=== PATIENT | male | born 1940 | race Caucasian/White ===

== ENCOUNTER 2016-09-11 08:09 | Day surgery (SDC) | payer MEDICARE, BC ==
[2016-09-11] MEDS ORDERED: LACTATED RINGERS 1,000 ML IV ONE (09:10)
[2016-09-11] MEDS ORDERED: GLUCAGON 1 MG/ML VIAL IM ONE (10:05)
[2016-09-11] MEDS ORDERED: MIDAZOLAM 2 MG/2 ML VIAL IVP ONE (10:05)
[2016-09-11] MEDS ORDERED: fentaNYL 100 MCG/2 ML VIAL IVP ONE (10:05)
== END 2016-09-11 08:10 | disposition home or self-care (01) ==
PROC: 0DBP8ZZ Excision of Rectum, Via Natural or Artificial Opening Endoscopic (ICD-10-PCS; 2016-09-11)
PROC: 0DBN8ZZ Excision of Sigmoid Colon, Via Natural or Artificial Opening Endoscopic (ICD-10-PCS; 2016-09-11)
PROC: 0DBH8ZZ Excision of Cecum, Via Natural or Artificial Opening Endoscopic (ICD-10-PCS; principal; 2016-09-11 09:15)
DX: Z12.11 Encounter for screening for malignant neoplasm of colon (principal); D12.0 Benign neoplasm of cecum; D12.5 Benign neoplasm of sigmoid colon; K62.1 Rectal polyp; G47.30 Sleep apnea, unspecified; I10 Essential (primary) hypertension; Z87.891 Personal history of nicotine dependence
CPT/HCPCS: 45384; 45385; J7120

== ENCOUNTER 2016-10-26 11:24 | Outpatient (CLI) | payer MEDICARE, BC | END 2016-10-26 11:25 | disposition home or self-care (01) | DX: G47.30 Sleep apnea, unspecified (principal); E11.9 Type 2 diabetes mellitus without complications; I50.9 Heart failure, unspecified; I25.10 Atherosclerotic heart disease of native coronary artery without angina pectoris; I10 Essential (primary) hypertension ==

== ENCOUNTER 2017-05-02 10:05 | Outpatient (CLI) | payer MEDICARE, BC ==
[2017-05-02 18:42] LABS: CALCIUM 8.9 mg/dL (8.5-10.3); CREATININE 1.6 mg/dL (0.6-1.2); POTASSIUM 4.9 mmol/L (3.5-5.0)
[2017-05-02 19:14] LABS: HEMOGLOBIN A1C 0.96 g/dL
== END 2017-05-02 10:06 | disposition home or self-care (01) ==
LOC: LAB.F 10:05
PROVIDERS: ATTEND Family Medicine
DX: I25.10 Atherosclerotic heart disease of native coronary artery without angina pectoris (principal); E11.9 Type 2 diabetes mellitus without complications; I10 Essential (primary) hypertension
CPT/HCPCS: 36415; 80048; 83036

== ENCOUNTER 2017-05-08 14:50 | Outpatient (CLI) | payer MEDICARE, BC ==
--- NOTE | 2017-05-09 12:56 | Ultrasound Report ---
BILATERAL LOWER EXTREMITY ARTERIAL DUPLEX: 05/08/2017 CLINICAL INDICATION: Peripheral vascular disease. TECHNIQUE: Real-time sonographic vascular imaging was performed by the burial vault deliverer and installer through the lower extremities utilizing both color-flow and Doppler spectral analysis. Multiple premium representative static images were saved for review. RIGHT SIDE SITE PSV WAVEFORM STEN VERTICA ARCHITECT 104 biphasic PSFA 103 biphasic MSFA 106 biphasic DSFA 105 biphasic PFA 55 biphasic POP 73 triphasic ELLIOTT 62 biphasic DISH WASHER 100 triphasic PER 58 biphasic DPA 53 biphasic LEFT SIDE SITE PSV WAVEFORM STEN VERTICA ARCHITECT 124 triphasic PSFA 107 triphasic MSFA 88 biphasic DSFA 100 triphasic PFA 101 biphasic POP 80 biphasic ELLIOTT 36 biphasic DISH WASHER 127 biphasic PER 99 biphasic DPA 43 biphasic TECHNIQUE: Real-time scanning was performed. FINDINGS: RIGHT: Waveforms are predominately biphasic. There is no evidence of a focal velocity increase to suggest a hemodynamically significant arterial stenosis. LEFT: Waveforms are predominately biphasic. There is no evidence of a focal velocity increase to suggest a hemodynamically significant stenosis. IMPRESSION: NO EVIDENCE OF A FOCAL HEMODYNAMICALLY SIGNIFICANT STENOSIS IN EITHER LEG. MTDD
== END 2017-05-08 14:51 | disposition home or self-care (01) ==
LOC: DI 14:50
PROVIDERS: ATTEND Family Medicine
DX: I73.9 Peripheral vascular disease, unspecified (principal)
CPT/HCPCS: 93925

== ENCOUNTER 2017-06-09 08:57 | Outpatient (CLI) | payer MEDICARE, BC ==
--- NOTE | 2017-06-09 17:04 | MRI Report ---
EXAM: MRI LUMBAR SPINE WITHOUT CONTRAST EXAM DATE: 06/09/2017 10:04 a.m. CLINICAL HISTORY: Low back pain with bilateral leg weakness. COMPARISON: Radiographs 03/20/2014. TECHNIQUE: Multiplanar, multisequence T1-weighted and fluid-sensitive sequences of the lumbar spine f rom T12 to S1 without contrast. Other: None. FINDINGS: Spinal Cord: The conus terminates at L1. Conus medullaris and lower thoracic cord is unremarkable. Alignment: Normal alignment. No spondylolisthesis. Bone Marrow: Five sbm-ytr-buxyryy lumbar vertebral bodies are assumed. No fracture. A small amount of diskogenic endplate edema at L2-L3. Disk Levels/Facets: Some degree of congenital canal stenosis with short pedicles throughout the lumba r spine and some prominence of posterior epidural fat from L2-L3 through L4-L5. There is disk height loss and dehydration throughout the lower thoracic and lumbar spine. T12-L1: Minimal disk bulge. No stenosis. L1-L2: Minimal disk bulge. No stenosis. L2-L3: Annular disk bulge, small foraminal protrusions and mild degenerative facet arthropathy. Mild central canal stenosis. Mild inferior foraminal narrowing bilaterally. L3-L4: Annular disk bulge with a broad-based large right paracentral and foraminal protrusion and sma ller left foraminal protrusion. Mild facet arthropathy with ligamentum flavum buckling. Severe centra l canal stenosis. Moderate left greater than right foraminal stenosis. L4-L5: Moderate degenerative facet arthropathy with ligamentum flavum buckling. Small broad-based for aminal protrusions. Mild central canal stenosis. Mild bilateral foraminal stenosis. L5-S1: Annular disk bulge and mild degenerative facet arthropathy. No significant stenosis. Musculature: Unremarkable. Other: Left renal atrophy partially visualized. IMPRESSION: 1. L3-L4 severe central canal stenosis and moderate left, greater than right, foraminal stenosis. 2. Mild central canal stenosis at the L2-L3 and L4-L5 levels. Comment: The following findings are so common in adults without low back pain that while we report th eir presence, they must be interpreted with caution and in the context of the clinical situation. (Re gilberto Dai et al, Spine 2001) Prevalence of findings in patients without low back pain: Disk degeneration (any evidence): 92% Disk desiccation/T2 signal loss: 83% Disk height loss: 56% Disk bulge: 64% Disk protrusion: 32% Annular tear/high intensity zone: 38% [facility] Referring Provider Line: [phone] SITE ID: [id number]
== END 2017-06-09 08:58 | disposition home or self-care (01) ==
LOC: DI 08:57
PROVIDERS: ATTEND Family Medicine
DX: M51.26 Other intervertebral disc displacement, lumbar region (principal); M51.36 Other intervertebral disc degeneration, lumbar region; M47.896 Other spondylosis, lumbar region
CPT/HCPCS: 72148

== ENCOUNTER 2017-08-28 07:49 | Emergency (ER) | payer MEDICARE, BC ==
--- NOTE | 2017-08-28 09:00 | ED Physician Documentation ---
PD HPI URI - Stated complaint Stated Complaint: COUGH - Chief complaint Chief Complaint: Resp - History obtained from History obtained from: Patient, Family - History of Present Illness Timing - onset: How many weeks ago (2) Timing duration: Weeks (2) Timing details: Gradual onset, Still present, Waxing and waning Associated symptoms: Nasal congestion, Rhinorrhea, Sore throat, Dry cough, Dyspnea Improves by: Rest, Medication Worsened by: Activity Similar symptoms before: Diagnosis (pneumonia) Recently seen: Not recently seen - Additional information Additional information: 77-year-old male is developed a cough for the past 2 weeks. He had some clearing of the cough and then worsening of his symptoms again. He had a hard time trying to cough up phlegm all night long last night. He does use CPAP. He has had prior sinus infection and pneumonia. Review of Systems Constitutional: denies: Fever Eyes: denies: Decreased vision Ears: denies: Ear pain Nose: reports: Rhinorrhea / runny nose, Congestion Throat: reports: Sore throat Cardiac: reports: Chest pain / pressure. denies: Palpitations Respiratory: reports: Dyspnea, Cough GI: denies: Abdominal Pain, Nausea, Vomiting : denies: Dysuria, Frequency PD PAST MEDICAL HISTORY - Past Medical History Cardiovascular: High cholesterol, Coronary artery disease Respiratory: Sleep apnea, CPAP use Neuro: None Endocrine/Autoimmune: Type 2 diabetes GI: Colon polyps, Chronic constipation : Kidney stones HEENT: None Psych: None Musculoskeletal: None Derm: Other - Past Surgical History Past Surgical History: Yes Cardiovascular: CABG, Other Derm: Skin cancer surgery - Present Medications Home Medications: Ambulatory Orders Medication Instructions Recorded Confirmed Aspirin [Aspir 81] 81 mg PO DAILY 02/25/14 09/11/16 Atorvastatin [Lipitor] 40 mg PO QPM 02/25/14 09/11/16 Insulin NPH Human [NovoLIN N] 100 - 150 unit SQ DAILY 02/25/14 09/11/16 Lisinopril 20 mg PO DAILY #30 tablet 04/27/16 09/11/16 hydroCHLOROthiazide [Hydrodiuril] 25 mg PO DAILY #30 tablet 04/27/16 09/11/16 Canagliflozin [Invokana] 300 mg PO 09/11/16 Nebivolol HCl [Bystolic] 20 mg PO 09/11/16 Potassium Chloride 20 mg PO 09/11/16 Amox/Clav 875/125 [Augmentin] 1 each PO Q12H #20 tablet 08/28/17 Benzonatate [Tessalon] 100 - 200 mg PO TID PRN #20 capsule 08/28/17 - Allergies Allergies/Adverse Reactions: Allergies Allergy/AdvReac Type Severity Reaction Status Date / Time metformin Allergy Mild Rash Verified 08/28/17 08:00 glyburide Allergy Rash Verified 08/28/17 08:00 nylon Allergy Rash Verified 08/28/17 08:00 - Social History Does the pt smoke?: No Smoking Status: Never smoker Does the pt drink ETOH?: No Does the pt have substance abuse?: No - Immunizations Immunizations are current?: Yes PD ED PE NORMAL - Vitals Vital signs reviewed: Yes (Hypertensive) - General General: Alert and oriented X 3, No acute distress, Well developed/nourished - HEENT HEENT: Atraumatic, PERRL, EOMI, Moist mucous membranes, Pharynx benign, Other ( Both TMs are mildly erythematous with rounding of the landmarks the left is worse than the right.) - Neck Neck: Supple, no meningeal sign, No bony TTP - Cardiac Cardiac: RRR - Respiratory Respiratory: No respiratory distress, Other (Scattered rhonchi.) - Abdomen Abdomen: Soft, Non tender - Back Back: No CVA TTP, No spinal TTP - Derm Derm: Normal color, Warm and dry, No rash - Extremities Extremities: No deformity, No edema - Neuro Neuro: No motor deficit, No sensory deficit Eye Opening: Spontaneous Motor: Obeys Commands Verbal: Oriented GCS Score: 15 - Psych Psych: Normal mood, Normal affect Results - Vitals Vitals: Vital Signs - 24 hr 08/28/17 07:54 Temperature 36.9 C Heart Rate 59 L Respiratory 18 Rate Blood Pressure 171/67 H O2 Saturation 96 Oxygen O2 Source Room air - Rads (name of study) 2 veiw chest Radiology: Prelim report reviewed (Impression: Very mild increased markings within the lateral right midlung and probably left lung base may represent mild atelectasis or scarring. Very mild acute infiltrate, less likely. No focal consolidation demonstrated.), EMP read indepedently, See rad report PD MEDICAL DECISION MAKING - ED course Complexity details: reviewed old records, reviewed results, re-evaluated patient , considered differential, d/w patient, d/w family ED course: 77-year-old male with a cough for the past 3 weeks has subtle evidence of pneumonia on his chest x-ray today he is administered Rocephin IM. Departure - Departure Disposition: 01 Home, Self Care Clinical Impression: Pneumonia Qualifiers: Pneumonia type: due to unspecified organism Laterality: bilateral Lung location : lower lobe of lung Qualified Code(s): J18.9 - Pneumonia, unspecified organism Condition: Stable Instructions: ED Pneumonia Adult Follow-Up: BRIAN GARCIA MD [Primary Care Provider] - Prescriptions: Amox/Clav 875/125 [Augmentin] 1 each PO Q12H #20 tablet Benzonatate [Tessalon] 100 - 200 mg PO TID PRN #20 capsule PRN Reason: Cough
--- NOTE | 2017-08-28 09:08 | XRAY Report ---
EXAM: CHEST RADIOGRAPHY EXAM DATE: 08/28/2017 08:59 AM. CLINICAL HISTORY: Cough X 3 weeks. COMPARISON: 04/26/2016 AP and lateral. TECHNIQUE: 2 views. FINDINGS: Lungs/Pleura: Very mild increased markings within the lateral right midlung and possibly the left quincy g base may represent very mild atelectasis or scarring. Very mild acute infiltrate is not excluded. N o focal consolidation. No pleural effusion. No pneumothorax. Mediastinum: Normal heart size. Stable changes of median sternotomy/CABG. Other: None. IMPRESSION: Very mild increased markings within the lateral right midlung and probably the left lung base may rep resent mild atelectasis or scarring. Very mild acute infiltrate, less likely. No focal consolidation demonstrated. [facility] Referring Provider Line: [phone] SITE ID: [id number]
[2017-08-28] MEDS ORDERED: cefTRIAXone 1 GM VIAL IM STA (09:15)
[2017-08-28] MEDS ORDERED: LIDOCAINE 1% 2 ML VIAL ONE (09:25)
[2017-08-28 09:42] VITALS: BP 124/56
== END 2017-08-28 09:41 | disposition home or self-care (01) ==
LOC: ED 07:49
DX: J18.9 Pneumonia, unspecified organism (principal); E11.9 Type 2 diabetes mellitus without complications; Z79.4 Long term (current) use of insulin; Z95.1 Presence of aortocoronary bypass graft; Z79.82 Long term (current) use of aspirin
CPT/HCPCS: 71046; 96372; 99283

== ENCOUNTER 2017-09-27 08:20 | Outpatient (CLI) | payer MEDICARE, BC ==
[2017-09-27 10:56] LABS: CALCIUM 8.7 mg/dL (8.5-10.3); CREATININE 1.3 mg/dL (0.6-1.2)
[2017-09-27 11:20] LABS: HB2 TOTAL 14.6 g/dL; HEMOGLOBIN A1C 1.16 g/dL; HEMOGLOBIN A1C % 9.4 % (4.6-6.2)
== END 2017-09-27 08:21 | disposition home or self-care (01) ==
LOC: LAB.F 08:20
PROVIDERS: ATTEND Family Medicine
DX: I25.10 Atherosclerotic heart disease of native coronary artery without angina pectoris (principal); I10 Essential (primary) hypertension; E11.9 Type 2 diabetes mellitus without complications
CPT/HCPCS: 36415; 80048; 83036

== ENCOUNTER 2017-11-01 09:35 | Outpatient (CLI) | payer MEDICARE, BC ==
[2017-11-01 17:44] LABS: CALCIUM 8.9 mg/dL (8.5-10.3); CREATININE 1.4 mg/dL (0.6-1.2)
[2017-11-01 18:30] LABS: HB2 TOTAL 15.7 g/dL; HEMOGLOBIN A1C 1.26 g/dL; HEMOGLOBIN A1C % 9.5 % (4.6-6.2)
== END 2017-11-01 09:36 | disposition home or self-care (01) ==
LOC: LAB.F 09:35
PROVIDERS: ATTEND Family Medicine
DX: E11.9 Type 2 diabetes mellitus without complications (principal); I10 Essential (primary) hypertension; E87.6 Hypokalemia; I50.9 Heart failure, unspecified
CPT/HCPCS: 36415; 80048; 83036

== ENCOUNTER 2017-11-08 14:46 | Outpatient (CLI) | payer MEDICARE, BC | END 2017-11-08 14:47 | disposition EMS.NT | LOC: EMS 14:46 | PROVIDERS: ATTEND Surgery | DX: R55 Syncope and collapse (principal) ==

== ENCOUNTER 2018-02-11 09:23 | Outpatient (CLI) | payer MEDICARE, BC ==
[2018-02-11 18:12] LABS: CALCIUM 9.3 mg/dL (8.5-10.3); CREATININE 1.6 mg/dL (0.6-1.2)
[2018-02-11 18:51] LABS: HB2 TOTAL 14.8 g/dL; HEMOGLOBIN A1C 0.93 g/dL; HEMOGLOBIN A1C % 7.9 % (4.6-6.2)
== END 2018-02-11 09:24 | disposition home or self-care (01) ==
LOC: LAB.F 09:23
PROVIDERS: ATTEND Family Medicine
DX: I50.9 Heart failure, unspecified (principal); E87.6 Hypokalemia; E11.9 Type 2 diabetes mellitus without complications; I10 Essential (primary) hypertension; I25.10 Atherosclerotic heart disease of native coronary artery without angina pectoris
CPT/HCPCS: 36415; 80048; 83036

== ENCOUNTER 2018-02-25 11:05 | Outpatient (CLI) | payer MEDICARE, BC | END 2018-02-25 11:06 | disposition home or self-care (01) | LOC: SC 11:05 | PROVIDERS: ATTEND Internal Medicine Pulmonary Disease | DX: G47.33 Obstructive sleep apnea (adult) (pediatric) (principal); E66.9 Obesity, unspecified; Z68.36 Body mass index [BMI] 36.0-36.9, adult | CPT/HCPCS: 99203; G0463; 99212 ==

== ENCOUNTER 2018-09-05 09:55 | Outpatient (CLI) | payer MEDICARE, BC ==
[2018-09-05 18:12] LABS: HB2 TOTAL 15.9 g/dL; HEMOGLOBIN A1C 0.84 g/dL
== END 2018-09-05 09:56 | disposition home or self-care (01) ==
LOC: LAB.F 09:55
PROVIDERS: ATTEND Family Medicine
DX: E11.59 Type 2 diabetes mellitus with other circulatory complications (principal); Z79.4 Long term (current) use of insulin
CPT/HCPCS: 36415; 83036

== ENCOUNTER 2018-09-24 14:22 | Emergency (ER) | payer MEDICARE, BC ==
[2018-09-24 14:32] VITALS: BP 152/75
--- NOTE | 2018-09-24 15:09 | XRAY Report ---
Reason: cough Procedure Date: 09/24/2018 Accession Number: [id number] / [id number] Procedure: XR - Chest 2 View X-Ray CPT Code: 90598 FULL RESULT: EXAM: CHEST RADIOGRAPHY EXAM DATE: 09/24/2018 02:44 PM. CLINICAL HISTORY: Cough. COMPARISON: CHEST 2 VIEW 08/28/2017 8:48 AM. TECHNIQUE: 2 views. FINDINGS: Lungs/Pleura: Mildly coarsened interstitial lung markings are again seen without focal opacity. Lung volumes are normal. There is no sizable pleural effusion or pneumothorax. Mediastinum: Stable cardiomediastinal silhouette with mild cardiomegaly and aortic arch calcifications. Other: The patient is status post CABG. IMPRESSION: Stable exam without acute airspace disease. [facility]
--- NOTE | 2018-09-24 16:00 | ED Physician Documentation ---
PD HPI URI - Stated complaint Stated Complaint: THROAT PX - Chief complaint Chief Complaint: Heent - History obtained from History obtained from: Patient - History of Present Illness Timing - onset: How many days ago (2) Timing duration: Days (2) Timing details: Gradual onset Pain level max: 0 Pain level now: 0 Associated symptoms: Nasal congestion, Rhinorrhea, Dry cough. No: Fever, Chills, Sore throat, Hemoptysis, Chest pain, Dyspnea Contributing factors: No: Sick contact Improves by: Rest Worsened by: Activity, Breathing Recently seen: Not recently seen Review of Systems Constitutional: denies: Fever, Chills Throat: denies: Sore throat Respiratory: reports: Cough GI: denies: Abdominal Pain, Nausea, Vomiting, Diarrhea Skin: denies: Rash Musculoskeletal: denies: Neck pain, Back pain Neurologic: denies: Headache PD PAST MEDICAL HISTORY - Past Medical History Past Medical History: Yes Cardiovascular: High cholesterol, Coronary artery disease Respiratory: Sleep apnea, CPAP use Endocrine/Autoimmune: Type 2 diabetes GI: Colon polyps, Chronic constipation : Kidney stones HEENT: None Psych: None Musculoskeletal: None Derm: Other - Past Surgical History Past Surgical History: Yes Cardiovascular: CABG, Other Derm: Skin cancer surgery - Present Medications Home Medications: Ambulatory Orders Medication Instructions Recorded Confirmed Aspirin [Aspir 81] 81 mg PO DAILY 02/25/14 09/11/16 Atorvastatin [Lipitor] 40 mg PO QPM 02/25/14 09/11/16 Lisinopril 20 mg PO DAILY #30 tablet 04/27/16 09/11/16 hydroCHLOROthiazide [Hydrodiuril] 25 mg PO DAILY #30 tablet 04/27/16 09/24/18 Canagliflozin [Invokana] 300 mg PO 09/11/16 Nebivolol HCl [Bystolic] 20 mg PO 09/11/16 Potassium Chloride 20 mg PO 09/11/16 Benzonatate [Tessalon Perle] 100 - 200 mg PO TID PRN #30 capsule 09/24/18 Cetirizine HCl/Pseudoephedrine 1 each PO BID PRN #30 tab.er.12h 09/24/18 [Zyrtec-D Tablet] Liraglutide [Victoza 2-Kei] 09/24/18 Trujeo 09/24/18 - Allergies Allergies/Adverse Reactions: Allergies Allergy/AdvReac Type Severity Reaction Status Date / Time metformin Allergy Mild Rash Verified 09/24/18 14:32 glyburide Allergy Rash Verified 09/24/18 14:32 nylon Allergy Rash Verified 09/24/18 14:32 - Social History Does the pt smoke?: No Smoking Status: Never smoker Does the pt drink ETOH?: No Does the pt have substance abuse?: No - Immunizations Immunizations are current?: Yes - POLST Patient has POLST: No PD ED PE NORMAL - Vitals Vital signs reviewed: Yes - General General: Alert and oriented X 3, No acute distress - HEENT HEENT: Ears normal, Moist mucous membranes, Pharynx benign - Neck Neck: Supple, no meningeal sign - Cardiac Cardiac: RRR - Respiratory Respiratory: No respiratory distress, Clear bilaterally - Abdomen Abdomen: Soft, Non tender, Non distended - Derm Derm: Warm and dry - Extremities Extremities: No edema - Neuro Neuro: Alert and oriented X 3 - Psych Psych: Normal mood, Normal affect Results - Vitals Vitals: Vital Signs - 24 hr 09/24/18 14:24 Temperature 36.3 C L Heart Rate 73 Respiratory 16 Rate Blood Pressure 152/75 H O2 Saturation 97 Oxygen O2 Source Room air - Labs Labs: Laboratory Tests 09/24/18 14:40 Group A Strep Rapid Negative - Rads (name of study) cxr Radiology: Prelim report reviewed, EMP read contemporaneously, See rad report (No acute disease) PD MEDICAL DECISION MAKING - ED course Complexity details: reviewed results, re-evaluated patient, considered differential, d/w patient ED course: 78-year-old male with what appears to be a viral upper respiratory infection. He is very well-appearing, nontoxic. Afebrile. No hypoxia. No respiratory distress. Will continue supportive care and follow-up with his doctor. Patient counseled regarding signs and symptoms for which I believe and urgent re- evaluation would be necessary. Patient with good understanding of and agreement to plan and is comfortable going home at this time This document was made in part using voice recognition software. While efforts are made to proofread this document, sound alike and grammatical errors may occur. Departure - Departure Disposition: 01 Home, Self Care Clinical Impression: Viral URI Condition: Good Instructions: ED URI Viral Follow-Up: BRIAN GARCIA MD [Primary Care Provider] - Within 1 week (if not better) Prescriptions: Benzonatate [Tessalon Perle] 100 - 200 mg PO TID PRN #30 capsule PRN Reason: Cough Cetirizine HCl/Pseudoephedrine [Zyrtec-D Tablet] 1 each PO BID PRN #30 tab.er.12h PRN Reason: nasal congestion Comments: Drink plenty of fluids and rest. Return if you worsen. Discharge Date/Time: 09/24/18 16:10
== END 2018-09-24 16:10 | disposition home or self-care (01) ==
LOC: ED 14:22
DX: J06.9 Acute upper respiratory infection, unspecified (principal); E11.9 Type 2 diabetes mellitus without complications; Z79.82 Long term (current) use of aspirin
CPT/HCPCS: 71046; 87070; 87430; 99283

== ENCOUNTER 2018-09-26 14:41 | Outpatient (CLI) | payer MEDICARE, BC ==
[2018-09-26 18:31] LABS: MEAN CORPUSCULAR HEMOGLOBIN 33.5 pg (27.0-31.0); MEAN CORPUSCULAR HGB CONC 33.2 g/dL (32.0-36.0); MEAN CORPUSCULAR VOLUME 100.7 fL (80.0-94.0); MEAN PLATELET VOLUME 9.4 fL (7.4-11.4); RED BLOOD COUNT 4.47 10^6/uL (4.70-6.10); RED CELL DISTRIBUTION WIDTH 13.9 % (12.0-15.0); WHITE BLOOD COUNT 7.9 x10^3/uL (4.8-10.8)
[2018-09-26 18:50] LABS: CALCIUM 8.8 mg/dL (8.5-10.3); CREATININE 1.6 mg/dL (0.6-1.2)
== END 2018-09-26 14:42 | disposition home or self-care (01) ==
LOC: LAB.F 14:41
PROVIDERS: ATTEND Orthopaedic Surgery
DX: Z01.818 Encounter for other preprocedural examination (principal)
CPT/HCPCS: 36415; 80048; 85027

== ENCOUNTER 2021-04-29 10:38 | Outpatient (CLI) | payer MEDICARE, BC ==
--- NOTE | 2021-04-29 18:26 | Ultrasound Report ---
PROCEDURE: Duplex Lwr Ext Arterial Bilat INDICATIONS: CLAUDICATION TECHNIQUE: Color and pulse Doppler interrogation was performed of both lower extremity arterial systems, with im age documentation. COMPARISON: None FINDINGS: Right lower extremity: Common femoral artery: 108 cm/sec, with biphasic flow. Deep femoral artery: 86 cm/sec, with biphasic flow. Proximal superficial femoral artery: 153 cm/sec, with biphasic flow. Mid superficial femoral artery: 111 cm/sec, with biphasic flow. Distal superficial femoral artery: 76 cm/sec, with biphasic flow. Popliteal artery: 63 cm/sec, with biphasic flow. Posterior tibial artery: 76 cm/sec, with biphasic flow. Anterior tibial artery/dorsalis pedis: 31 cm/sec, with biphasic flow. Upton-scale imaging description: Scattered calcified plaque. No significant stenosis. Left lower extremity: Common femoral artery: 110 cm/sec, with biphasic flow. Deep femoral artery: 106 cm/sec, with biphasic flow. Proximal superficial femoral artery: 128 cm/sec, with biphasic flow. Mid superficial femoral artery: 96 cm/sec, with biphasic flow. Distal superficial femoral artery: 61 cm/sec, with biphasic flow. Popliteal artery: 65 cm/sec, with biphasic flow. Posterior tibial artery: 77 cm/sec, with biphasic flow. Anterior tibial artery/dorsalis pedis: 166 cm/sec, with biphasic flow. Upton-scale imaging description: Scattered calcified plaque. No stenosis between the common femoral a nd the popliteal. Anterior tibial artery stenosis. IMPRESSION: 1. No evidence of inflow disease bilaterally. 2. Right lower extremity arterial runoff demonstrates calcific plaque without evidence of hemodynamic ally significant stenosis. 3. Left lower extremity runoff demonstrates calcified plaque without stenosis from the common femoral through the popliteal. There is an anterior tibial artery stenosis. Reviewed by: Ronald Mast MD on 04/29/2021 6:25 PM PDT Approved by: Ronald Mast MD on 04/29/2021 6:25 PM PDT Station ID: [id number]
== END 2021-04-29 10:39 | disposition home or self-care (01) ==
LOC: DI 10:38
PROVIDERS: ATTEND Podiatrist
DX: I70.219 Atherosclerosis of native arteries of extremities with intermittent claudication, unspecified extremity (principal); E11.9 Type 2 diabetes mellitus without complications
CPT/HCPCS: 93925

== ENCOUNTER 2021-06-08 11:38 | Outpatient (CLI) | payer MEDICARE, BC ==
[2021-06-08 14:59] LABS: BASOPHILS # (AUTO) 0.1 10^3/uL (0.0-0.1); BASOPHILS % (AUTO) 0.8 %; EOSINOPHILS # (AUTO) 0.4 10^3/uL (0.0-0.7); EOSINOPHILS % (AUTO) 4.8 %; HGB - HEMOGLOBIN 14.1 g/dL (14.0-18.0); LYMPHOCYTES # (AUTO) 2.1 10^3/uL (1.5-3.5); MEAN CORPUSCULAR HEMOGLOBIN 32.5 pg (27.0-31.0); MEAN CORPUSCULAR HGB CONC 32.8 g/dL (32.0-36.0); MEAN CORPUSCULAR VOLUME 99.1 fL (80.0-94.0); MEAN PLATELET VOLUME 11.7 fL (7.4-11.4); MONOCYTES # (AUTO) 0.8 10^3/uL (0.0-1.0); NEUTROPHILS % (AUTO) 59.9 %; PLT - PLATELET COUNT 167 10^3/uL (130-450); RED BLOOD COUNT 4.34 10^6/uL (4.70-6.10); RED CELL DISTRIBUTION WIDTH 13.2 % (12.0-15.0); WHITE BLOOD COUNT 8.4 x10^3/uL (4.8-10.8)
[2021-06-08 15:40] LABS: CREATININE 1.7 mg/dL (0.6-1.2); POTASSIUM 4.8 mmol/L (3.5-5.0)
[2021-06-08 20:16] LABS: ESTIMATED AVERAGE GLUCOSE 203 mg/dL (70-100); HEMOGLOBIN A1c% 8.7 % (4.27-6.07)
== END 2021-06-08 11:39 | disposition home or self-care (01) ==
LOC: LAB.S 11:38
PROVIDERS: ATTEND Orthopaedic Surgery Orthopaedic Surgery of the Spine
DX: Z01.818 Encounter for other preprocedural examination (principal); R73.9 Hyperglycemia, unspecified
CPT/HCPCS: 36415; 80048; 83036; 85025; 93005

== ENCOUNTER 2023-09-28 12:55 | Inpatient (IN) | payer BC, MEDICARE ==
--- NOTE | 2023-09-28 13:10 | ED Physician Documentation ---
PD HPI ALTERED MENTAL STATUS - Stated complaint Stated Complaint: ALOC - Chief complaint Chief Complaint: General - History obtained from History obtained from: Patient, EMS - History of Present Illness Timing - onset: How many days ago (the patient and his son state the patient has been weaker and not eating well for few days. Denies fevers nor URI per se. Pt states he did not have breakfast this morning and shell mold bonder/aide came in to find him lethargic and weak. Blood sugar low per EMS at 45. He improved mod with IV glucose.) Timing - details: Gradual onset Quality / character: Less responsive Associated symptoms: Dyspnea. No: Fever, Headache, Cough Contributing factors: Diabetic. No: Anticoagulated, Recent med change, Recent illness (patient without fever nor cough per se, but has had general malaise and weakness for couple of days. Less appetite and did not have breakfast this morning. Has had less desire for eating the past month, depressed/sad with of his Sep 01.) Basline status: Alert and oriented X 3, Ambulatory Treatment [place]UR[place]: Accucheck, D50 Similar symptoms before: Has not had sx before (has not had problems with low blood sugar in the recent past.) Review of Systems Constitutional: reports: Fatigue. denies: Fever, Chills Nose: reports: Congestion Throat: denies: Sore throat Cardiac: denies: Chest pain / pressure, Pedal edema Respiratory: reports: Dyspnea (for several days). denies: Cough, Wheezing PD PAST MEDICAL HISTORY - Past Medical History Past Medical History: Yes Cardiovascular: High cholesterol, Coronary artery disease Respiratory: Sleep apnea, CPAP use Endocrine/Autoimmune: Type 2 diabetes GI: Colon polyps, Chronic constipation : Kidney stones HEENT: None Psych: None Musculoskeletal: None Derm: Other - Past Surgical History Past Surgical History: Yes Cardiovascular: CABG, Other Derm: Skin cancer surgery - Present Medications Home Medications: Ambulatory Orders Medication Instructions Recorded Confirmed Aspirin [Aspir 81] 81 mg PO DAILY 02/25/14 09/11/16 Atorvastatin [Lipitor] 40 mg PO QPM 02/25/14 09/11/16 Lisinopril 20 mg PO DAILY #30 tablet 04/27/16 09/11/16 hydroCHLOROthiazide [Hydrodiuril] 25 mg PO DAILY #30 tablet 04/27/16 09/24/18 Canagliflozin [Invokana] 300 mg PO 09/11/16 Nebivolol HCl [Bystolic] 20 mg PO 09/11/16 Potassium Chloride 20 mg PO 09/11/16 Benzonatate [Tessalon Perle] 100 - 200 mg PO TID PRN #30 capsule 09/24/18 Cetirizine HCl/Pseudoephedrine 1 each PO BID PRN #30 tab.er.12h 09/24/18 [Zyrtec-D Tablet] Liraglutide [Victoza 2-Kei] 09/24/18 Trujeo 09/24/18 - Allergies Allergies/Adverse Reactions: Allergies Allergy/AdvReac Type Severity Reaction Status Date / Time metformin Allergy Mild Rash Verified 09/28/23 13:02 glyburide Allergy Rash Verified 09/28/23 13:02 nylon Allergy Rash Verified 09/28/23 13:02 - Social History Does the pt smoke?: No Smoking Status: Never smoker Does the pt drink ETOH?: No Does the pt have substance abuse?: No - Immunizations Immunizations are current?: Yes - POLST Patient has POLST: No PD ED PE NORMAL - Vitals Vital signs reviewed: Yes - General General: Alert and oriented X 3 (he is alert but is slow to answer questions but content and expression is appropriate. ), No acute distress, Well developed/nourished - HEENT HEENT: Atraumatic, Pharynx benign - Neck Neck: Supple, no meningeal sign, No adenopathy - Cardiac Cardiac: RRR, No murmur - Respiratory Respiratory: No respiratory distress. No: Clear bilaterally (some mild exp wheezing noted more to right. Some congested sounds right perihilar. No fine crackles. ) - Abdomen Abdomen: Soft, Non tender - Derm Derm: Warm and dry. No: Normal color (somewhat pale on first arrival with improved given some IV fluids and food to eat. ) - Extremities Extremities: Normal ROM s pain, No edema, No calf tenderness / cord - Neuro Neuro: Alert and oriented X 3, No motor deficit, Normal speech Eye Opening: Spontaneous Motor: Obeys Commands Verbal: Confused (does have conversation but is slow to answer and seems to be processing thoughts slowly. His son is in ED and has that opinion of pt not being at usual baseline level and has been slower for few days.) GCS Score: 14 Results - Vitals Vitals: Vital Signs - 24 hr 09/28/23 09/28/23 09/28/23 13:02 13:06 17:26 Temperature 36.8 C Heart Rate 87 83 79 Respiratory 18 18 15 Rate Blood Pressure 116/66 109/60 176/97 H O2 Saturation 96 95 98 09/28/23 09/28/23 09/28/23 19:00 21:00 22:00 Temperature Heart Rate 85 82 83 Respiratory 17 17 17 Rate Blood Pressure 178/88 H 149/98 H 186/143 H O2 Saturation 99 100 100 Oxygen O2 Source Room air - Labs Labs: Laboratory Tests 09/28/23 09/28/23 09/28/23 13:47 13:47 15:53 WBC 15.6 H RBC 5.14 Hgb 16.3 Hct 50.3 MCV 97.9 H MCH 31.7 H MCHC 32.4 RDW 13.4 Plt Count 203 MPV 10.8 Neut # (Auto) 12.6 H Lymph # (Auto) 1.6 [place] # (Auto) 1.4 H Eos # (Auto) 0.0 Baso # (Auto) 0.0 Absolute Nucleated RBC 0.00 Nucleated RBC % 0.0 Sodium 138 Potassium 4.6 H Chloride 105 Carbon Dioxide 21 Anion Gap 12.0 BUN 50 H Creatinine 3.0 H Estimated GFR (MDRD) 20 L Glucose 141 H POC Whole Bld Glucose Calcium 9.2 Magnesium 1.9 Total Bilirubin 1.0 AST 18 ALT 11 Alkaline Phosphatase 63 Troponin I High Sens 59.6 H* B-Natriuretic Peptide 208 H Total Protein 7.0 Albumin 3.8 Globulin 3.2 Albumin/Globulin Ratio 1.2 Lipase < 10 L Nasal Adenovirus (PCR) Nasal B. parapertussis DNA (PCR) Nasal Coronavir 229E PCR Nasal Coronavir HKU1 PCR Nasal Coronavir NL63 PCR Nasal Coronavir OC43 PCR Nasal Enterovir/Rhinovir PCR Nasal Influenza B PCR Nasal Influenza A PCR Nasal Parainfluen 1 PCR Nasal Parainfluen 2 PCR Nasal Parainfluen 3 PCR Nasal Parainfluen 4 PCR Nasal RSV (PCR) Nasal B.pertussis DNA PCR Nasal C.pneumoniae (PCR) Gage Human Metapneumo PCR Nasal M.pneumoniae (PCR) Nasal SARS-CoV-2 (PCR) 09/28/23 09/28/23 09/28/23 17:22 17:23 18:30 WBC RBC Hgb Hct MCV MCH MCHC RDW Plt Count MPV Neut # (Auto) Lymph # (Auto) [place] # (Auto) Eos # (Auto) Baso # (Auto) Absolute Nucleated RBC Nucleated RBC % Sodium Potassium Chloride Carbon Dioxide Anion Gap BUN Creatinine Estimated GFR (MDRD) Glucose POC Whole Bld Glucose 92 Calcium Magnesium Total Bilirubin AST ALT Alkaline Phosphatase Troponin I High Sens 73.9 H* B-Natriuretic Peptide Total Protein Albumin Globulin Albumin/Globulin Ratio Lipase Nasal Adenovirus (PCR) NOT DETECTED Nasal B. parapertussis DNA (PCR) NOT DETECTED Nasal Coronavir 229E PCR NOT DETECTED Nasal Coronavir HKU1 PCR NOT DETECTED Nasal Coronavir NL63 PCR NOT DETECTED Nasal Coronavir OC43 PCR NOT DETECTED Nasal Enterovir/Rhinovir PCR NOT DETECTED Nasal Influenza B PCR NOT DETECTED Nasal Influenza A PCR NOT DETECTED Nasal Parainfluen 1 PCR NOT DETECTED Nasal Parainfluen 2 PCR NOT DETECTED Nasal Parainfluen 3 PCR NOT DETECTED Nasal Parainfluen 4 PCR NOT DETECTED Nasal RSV (PCR) NOT DETECTED Nasal B.pertussis DNA PCR NOT DETECTED Nasal C.pneumoniae (PCR) NOT DETECTED Gage Human Metapneumo PCR NOT DETECTED Nasal M.pneumoniae (PCR) NOT DETECTED Nasal SARS-CoV-2 (PCR) NOT DETECTED 09/28/23 20:47 WBC RBC Hgb Hct MCV MCH MCHC RDW Plt Count MPV Neut # (Auto) Lymph # (Auto) [place] # (Auto) Eos # (Auto) Baso # (Auto) Absolute Nucleated RBC Nucleated RBC % Sodium Potassium Chloride Carbon Dioxide Anion Gap BUN Creatinine Estimated GFR (MDRD) Glucose POC Whole Bld Glucose 72 Calcium Magnesium Total Bilirubin AST ALT Alkaline Phosphatase Troponin I High Sens B-Natriuretic Peptide Total Protein Albumin Globulin Albumin/Globulin Ratio Lipase Nasal Adenovirus (PCR) Nasal B. parapertussis DNA (PCR) Nasal Coronavir 229E PCR Nasal Coronavir HKU1 PCR Nasal Coronavir NL63 PCR Nasal Coronavir OC43 PCR Nasal Enterovir/Rhinovir PCR Nasal Influenza B PCR Nasal Influenza A PCR Nasal Parainfluen 1 PCR Nasal Parainfluen 2 PCR Nasal Parainfluen 3 PCR Nasal Parainfluen 4 PCR Nasal RSV (PCR) Nasal B.pertussis DNA PCR Nasal C.pneumoniae (PCR) Gage Human Metapneumo PCR Nasal M.pneumoniae (PCR) Nasal SARS-CoV-2 (PCR) PD Medical Decision Making - ED course Complexity details: reviewed results (CXR showing infiltrates right lower. Elevated WBC. Renal funciton is higher than baseline, with current 3.0 and usual 1.7. Glucose has remained reasonable after PO food and recheck over several hours, but level of weakness and some confused has not cleared. Unable to stand bedside nor walk unassist.), considered differential (low blood sugar this AM but is still weak, confused, poor ability to stand himself with sugars normal and remaining normal for few hours. Has CXR showing likely infiltrates right lower. Elevated WBC. He is not hypoxic but does have high PORT score. ), d/w patient, d/w government operations consultant (discussed with Dr. Mcgarry, Hospitalist, and agrees in pt in hospital but defers to evening hospitalist since is close to end of his shift. I will defer to night EDMD and Hospitalist. ) Reviewed Lab Results: has mildly elevated trop which I feel relateds to the low blood sugar episode since mild elevated and minimal private branch exchange installer couple hours. I do not feel it represents focal hear injury. ED course: having general weakness and low blood sugar, which could relate to not eating breakfast this moring, but remains weak and confused/sluggish thought process. Elevated WBC and CXR showing some infiltrates right lower per Radiology report. His PORT/PSI score result is 132, which would recommend hospitalization. and CURB-65 score of 3, which also suggests inpatient treatment. I believe illness along with irregular eating this moring lead to low sugar but more importantly is continuing his weakness/confusion. Departure - Departure Disposition: ED Place in Observation Clinical Impression: General weakness, Confusion, Hypoglycemia, Pulmonary infiltrates on CXR, Pneumonia, Diabetes Condition: Stable Record reviewed to determine appropriate education?: Yes
[2023-09-28] MEDS: SODIUM CHLORIDE 0.9% 500 ML IV STA (13:45)
[2023-09-28 13:53] LABS: BASOPHILS % (AUTO) 0.3 %; HCT - HEMATOCRIT 50.3 % (42.0-52.0); HGB - HEMOGLOBIN 16.3 g/dL (14.0-18.0); LYMPHOCYTES # (AUTO) 1.6 10^3/uL (1.5-3.5); MEAN CORPUSCULAR HEMOGLOBIN 31.7 pg (27.0-31.0); MEAN CORPUSCULAR HGB CONC 32.4 g/dL (32.0-36.0); MEAN CORPUSCULAR VOLUME 97.9 fL (80.0-94.0); MEAN PLATELET VOLUME 10.8 fL (7.4-11.4); MONOCYTES # (AUTO) 1.4 10^3/uL (0.0-1.0); MONOCYTES % (AUTO) 8.8 %; NEUTROPHILS # (AUTO) 12.6 10^3/uL (1.5-6.6); NEUTROPHILS % (AUTO) 80.5 %; PLT - PLATELET COUNT 203 10^3/uL (130-450); RED BLOOD COUNT 5.14 10^6/uL (4.70-6.10); RED CELL DISTRIBUTION WIDTH 13.4 % (12.0-15.0); WHITE BLOOD COUNT 15.6 x10^3/uL (4.8-10.8)
[2023-09-28 14:10] LABS: ALBUMIN 3.8 g/dL (3.2-5.5); ALBUMIN/GLOBULIN RATIO 1.2 (1.0-2.2); ALKALINE PHOSPHATASE 63 IU/L (42-121); ALT ALANINE AMINOTRANSFERASE 11 IU/L (10-60); AST ASPARTATE AMINOTRANSFERASE 18 IU/L (10-42); BUN - BLOOD UREA NITROGEN 50 mg/dL (6-20); CALCIUM 9.2 mg/dL (8.5-10.3); CARBON DIOXIDE - CO2 21 mmol/L (21-32); CHLORIDE 105 mmol/L (101-111); GFR - MDRD 20 (>89); GLUCOSE 141 mg/dL (74-104); MAGNESIUM 1.9 mg/dL (1.7-2.3); POTASSIUM 4.6 mmol/L (3.5-4.5); SODIUM 138 mmol/L (135-145)
[2023-09-28 14:11] LABS: LIPASE < 10 U/L (11-82)
[2023-09-28] MEDS: SODIUM CHLORIDE 0.9% 1,000 ML IV STA (14:49)
--- NOTE | 2023-09-28 17:05 | XRAY Report ---
PROCEDURE: Chest 1V INDICATIONS: chest pain TECHNIQUE: One view of the chest was acquired. COMPARISON: 07/07/2022 FINDINGS: Surgical changes and devices: Sternotomy wires. Mediastinal clips. Lungs and pleura: Mild opacities in the lower lungs. No dense consolidation or pleural effusion else where. Mediastinum: Borderline heart size. Bones and chest wall: Degenerative changes. IMPRESSION: There are mild nodular lower lung opacities, which may be infectious or inflammatory depending on cli nical context. Limited single view radiograph. Consider future imaging surveillance to assess for res olution. Reviewed by: Jeff Riley MD on 09/28/2023 5:04 PM PST Approved by: Jeff Riley MD on 09/28/2023 5:04 PM PST Station ID: [id number]
[2023-09-28 18:27] LABS: B. PARAPERTUSSIS- RESP PCR PAN NOT DETECTED; B. PERTUSSIS- RESP PCR PANEL NOT DETECTED; C. PNEUMONIAE- RESP PCR PANEL NOT DETECTED; CORONAVIRUS 229E-RESP PCR NOT DETECTED; CORONAVIRUS HKU1-RESP PCR NOT DETECTED; CORONAVIRUS NL63-RESP PCR NOT DETECTED; CORONAVIRUS OC43-RESP PCR NOT DETECTED; HUMAN METAPNEUMOVIRUS NOT DETECTED; INFLUENZA A- RESP PCR PANEL NOT DETECTED; INFLUENZA B - RESP PCR PANEL NOT DETECTED; M. PNEUMONIAE- RESP PCR PANEL NOT DETECTED; PARAINFLUENZA VIRUS 1 NOT DETECTED; PARAINFLUENZA VIRUS 2 NOT DETECTED; PARAINFLUENZA VIRUS 3 NOT DETECTED; PARAINFLUENZA VIRUS 4 NOT DETECTED; RHINOVIRUS/ENTEROVIRUS NOT DETECTED; RSV- RESP PCR PANEL NOT DETECTED; SARS-CoV-2 -RESP PCR PANEL NOT DETECTED
[2023-09-28] MEDS: cefTRIAXone 1 GM VIAL IVP STA (18:44)
[2023-09-28] MEDS: AZITHROMYCIN 250 MG TABLET PO STA (18:44)
--- NOTE | 2023-09-28 23:29 | HISTORY & PHYSICAL EXAMINATION ---
Chief Complaint - Chief Complaint Chief Complaint: confusion History of Present Illness - Admitted From Admitted From:: home - History Obtained From History obtained from: patient, RN at bedside, discussion with ER provider - History of Present Illness HPI Comment/Other: Mr Marsh is an 83 yo M with history of CAD/CABG, DM II, HLD. 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 Per report patient's 1-2 weeks ago and since that time he has been living alone. There have been concerns regarding his PO intake, medication management. Upon EMS arrival patient had blood glucose 45. History is very limited - pt is having a hard time understanding the telemedicine/video encounter, does not answer questions for me. RN at bedside attempts to assist. Patient has denied any pain or discomfort, denies chest pain. History - Past Medical History Cardiovascular: reports: High cholesterol, Coronary artery disease Respiratory: reports: Sleep apnea, CPAP use Endocrine/Autoimmune: reports: Type 2 diabetes GI: reports: Colon polyps, Chronic constipation : reports: Kidney stones HEENT: reports: None Psych: reports: None Musculoskeletal: reports: None Derm: reports: Other MRSA Hx?: No - Past Surgical History Cardiovascular: reports: CABG, Other Derm: reports: Skin cancer surgery - POLST Patient has POLST: No Meds/Allgy - Home Medications Home Medications: Ambulatory Orders Medication Instructions Recorded Confirmed Aspirin [Aspir 81] 81 mg PO DAILY 02/25/14 09/11/16 Atorvastatin [Lipitor] 40 mg PO QPM 02/25/14 09/11/16 Lisinopril 20 mg PO DAILY #30 tablet 04/27/16 09/11/16 hydroCHLOROthiazide [Hydrodiuril] 25 mg PO DAILY #30 tablet 04/27/16 09/24/18 Canagliflozin [Invokana] 300 mg PO 09/11/16 Nebivolol HCl [Bystolic] 20 mg PO 09/11/16 Potassium Chloride 20 mg PO 09/11/16 Benzonatate [Tessalon Perle] 100 - 200 mg PO TID PRN #30 capsule 09/24/18 Cetirizine HCl/Pseudoephedrine 1 each PO BID PRN #30 tab.er.12h 09/24/18 [Zyrtec-D Tablet] Liraglutide [Victoza 2-Kei] 09/24/18 Trujeo 09/24/18 - Allergies Allergies/Adverse Reactions: Allergies Allergy/AdvReac Type Severity Reaction Status Date / Time metformin Allergy Mild Rash Verified 09/28/23 13:02 glyburide Allergy Rash Verified 09/28/23 13:02 nylon Allergy Rash Verified 09/28/23 13:02 Review of Systems - Constitutional Constitutional: reports: Fatigue, Weakness, Poor appetite - Ears, Nose & Throat Ears, Nose & Throat: denies: Ear pain, Hearing loss - Cardiovascular Cariovascular: denies: Palpitations, Chest pain - Respiratory Respiratory: denies: Cough, Sputum production, Wheezing - Gastrointestinal Gastrointestinal: denies: Abdominal pain - Genitourinary Genitourinary: denies: Dysuria, Frequency - Integumentary Integumentary: denies: Rash, Pruritis - Neurological Neurological: reports: General weakness Exam - Vital Signs Reviewed Vital Signs: Yes Vital Signs: Vital Signs x48h Pulse Resp BP Pulse Ox 09/28/23 22:00 83 17 186/143 H 100 09/28/23 21:00 82 17 149/98 H 100 09/28/23 19:00 85 17 178/88 H 99 09/28/23 17:26 79 15 176/97 H 98 - Physical Exam General Appearance: positive: No acute distress, Alert Eyes Bilateral: positive: Normal inspection ENT: positive: ENT inspection nml Neck: positive: Nml inspection Respiratory: positive: No respiratory distress Skin: positive: Color nml, No rash Neurologic/Psychiatric: positive: Other (patient did not answer orientation, per ER provider pt oriented to self, occasionally place; has been confused when answering simple questions per RN at bedside) Conclusion/Plan - Lab Results Lab results reviewed: Yes Fish Bones: 09/28/23 13:47 09/28/23 13:47 - Diagnostic Imaging Results Diagnostic Imaging Results: positive: Final report reviewed - Other Other Results/Comments: Assessment/Plan: Acute metabolic encephalopathy -Likely multifactorial in setting of hypoglycemia, VILMA -Baseline unknown, ?underlying dementia -Continue to monitor closely, currently awake, alert, no signs of agitation, moderately confused and disoriented -SW consult to ensure home safety assessment, pt reportedly now lives independently since his -PT/OT consults VILMA on CKD III -Baseline Cr ~1.7 -Possibly related to poor PO intake -Gentle IV fluid hydration overnight -Trend labs Hypoglycemia -Likely combination of poor PO intake and med accumulation in setting of VILMA -Hold oral agents -F/u HA1c -Accuchecks to monitor blood glucose, SSI if needed -Diabetic diet Elevated troponin -Pt with history of CAD/CABG -Trend troponins - consider further w/u pending trend -Pt denies chest pain at this time -Continue ASA, statin Elevated leukocytosis -Possibly stress related, no clear signs of infection -Possible PNA/infiltrates on CXR although no obvious clinical signs of pneumonia -Pt did receive abx in ER for possible CAP - re-assess in a.m. to determine need for further abx -Trend labs Full code DVT ppx: Heparin sc
[2023-09-28] MEDS ORDERED: ACETAMINOPHEN 325 MG TABLET PO PRN (23:43)
[2023-09-29] MEDS: SODIUM CHLORIDE FLUSH 0.9% 10 ML SYRINGE IVP SCH (00:52)
[2023-09-29] MEDS: SODIUM CHLORIDE 0.9% 1,000 ML IV SCH (00:53)
--- NOTE | 2023-09-29 01:07 | ED Physician Documentation ---
ED Addendum - Addendum Addendum: 09/29/23 01:02 I received signout/turnover of care on this patient from Dr. Porter; please see his note for complete H&P. In brief, this patient presented to the emergency department via ambulance after being found at his home with significantly altered mental status. His blood sugar was found to be in the mid 40s, and his mentation did improve after he was given D50. Per the sign-out I received from Dr. Porter, the patient's spouse a month ago and there are some concerns about the patient's self- care as well and adherence to medication regimens and adequate p.o. intake (particularly considering he is a diabetic). On tonight's tests, relevant abnormalities include creatinine of 3.0 (baseline creatinine is in the 1.3-1.7 range with no previous values in [facility] that were higher than 1.7), infiltrates on chest x-ray, leukocytosis on CBC. He is given Zithromax and Rocephin for possible pneumonia based on the chest x-ray and elevated white blood cell count. Dr. Porter discussed this case with the hospitalist who reportedly agreed patient would be appropriate for admission to [facility] but requested holding patient in the ER until telehealth services are available as the hospitalists shift was coming to an end. I discussed this case with sound telehealth who agrees to admission to [facility].
[2023-09-29] MEDS: hydrALAZINE INJ 20 MG/ML VIAL IVP PRN (01:55)
[2023-09-29 06:07] LABS: BASOPHILS # (AUTO) 0.1 10^3/uL (0.0-0.1); BASOPHILS % (AUTO) 0.5 %; EOSINOPHILS # (AUTO) 0.1 10^3/uL (0.0-0.7); EOSINOPHILS % (AUTO) 0.7 %; HCT - HEMATOCRIT 48.7 % (42.0-52.0); HGB - HEMOGLOBIN 16.3 g/dL (14.0-18.0); LYMPHOCYTES # (AUTO) 2.1 10^3/uL (1.5-3.5); LYMPHOCYTES % (AUTO) 12.9 %; MEAN CORPUSCULAR HGB CONC 33.5 g/dL (32.0-36.0); MEAN CORPUSCULAR VOLUME 98.6 fL (80.0-94.0); MEAN PLATELET VOLUME 10.4 fL (7.4-11.4); MONOCYTES # (AUTO) 1.6 10^3/uL (0.0-1.0); NEUTROPHILS # (AUTO) 12.3 10^3/uL (1.5-6.6); NEUTROPHILS % (AUTO) 75.5 %; PLT - PLATELET COUNT 182 10^3/uL (130-450); RED BLOOD COUNT 4.94 10^6/uL (4.70-6.10); RED CELL DISTRIBUTION WIDTH 13.5 % (12.0-15.0); WHITE BLOOD COUNT 16.2 x10^3/uL (4.8-10.8)
[2023-09-29 06:59] LABS: SLIDE REVIEW? Indicated
[2023-09-29 07:16] LABS: CALCIUM 9.2 mg/dL (8.5-10.3); POTASSIUM 4.3 mmol/L (3.5-4.5); TROPONIN I HIGH SENSITIVITY 52.8 ng/L (2.3-19.7)
[2023-09-29 07:19] LABS: CREATININE 2.2 mg/dL (0.6-1.3)
[2023-09-29 07:54] LABS: PLATELET ESTIMATE, MANUAL NORMAL (130-450,000) (NORMAL); PLATELET MORPHOLOGY NORMAL APPEARANCE (NORMAL); RBC MORPHOLOGY (MULTIPLE) NORMAL APPEARANCE (NORMAL); WBC MORPHOLOGY (MULTIPLE) NORMAL APPEARANCE (NORMAL)
[2023-09-29] MEDS: INSULIN LISPRO 300 UNIT/3 ML PEN SUBQ SCH (08:57)
[2023-09-29] MEDS: ASPIRIN EC 81 MG TABLET PO SCH (08:57)
[2023-09-29] MEDS: HEPARIN 5,000 UNIT/ML VIAL SUBQ SCH (09:00)
[2023-09-29 09:54] LABS: ESTIMATED AVERAGE GLUCOSE 151 mg/dL (70-100); HEMOGLOBIN A1c% 6.9 % (4.27-6.07)
--- NOTE | 2023-09-29 11:54 | PROVIDER PROGRESS NOTE ---
Assessment/Plan - Problem List (1) Acute metabolic encephalopathy Assessment/Plan: Etiology of mental status changes is not clear but most likely related to patient's episode of hypoglycemia and acute kidney injury. Plan: Continue to monitor mental status. Discussed with social work if patient is safe to live at home alone independently. (2) VILMA on CKD III Creatinine continues to improve and is 1.2 today. Continue to follow renal function. IV fluids discontinued. Encourage p.o. intake. (3) Hypoglycemia Most likely related to decreased p.o. intake. Is unclear at this time what medications patient takes on a daily basis. Social work, physical therapy and occupational therapy to assist in determining if patient is safe for return to home. Continue diabetic diet. (4) Elevated Troponin Troponin has trended down. I do not feel this is an issue at this time. (5) Leukocytosis Most likely related to the use stress. There is no clear source of infection at this time. Continue to monitor. DVT ppx: Heparin subcutaneously - Current Meds Current Meds: Current Medications Generic Name Dose Route Start Last Admin Trade Name Geovany PRN Reason Stop Dose Admin Aspirin 81 mg 09/29/23 09:00 09/29/23 08:57 Aspirin Ec 81 Mg Tablet PO 81 mg DAILY LYDIA Administration Heparin Sodium (Porcine) 5,000 unit 09/29/23 09:00 09/29/23 09:00 Heparin 5,000 Unit/Ml Vial SUBQ 5,000 unit BID LYDIA Administration Hydralazine HCl 10 mg 09/28/23 23:48 09/29/23 01:55 Hydralazine Inj 20 Mg/Ml Vial IVP 10 mg Q6H PRN Administration SBP> or= 160 OR DBP> or= 110 Insulin Human Lispro 1 - 9 unit 09/29/23 08:00 09/29/23 11:46 Insulin Lispro 300 Unit/3 Ml Pen SUBQ Not Given 0800,1200,1700,2100 [facility] Protocol Sodium Chloride 10 ml 09/29/23 01:00 09/29/23 08:58 Sodium Chloride Flush 0.9% 10 Ml Syringe IVP Not Given 0100,0900,1700 [facility] - Lab Result Fish Bone Diagrams: 09/30/23 08:29 09/30/23 08:29 - Additional Planning My Orders: My Active Orders 09/29/23 UA, MICROSCOPIC & CULT IF [URIN] Routine Subjective - Subjective Patient Reports: Other (Alert and oriented to person, place but not time. He did not know why he was in the hospital. He has no other complaints at this time.) Objective Vital Signs: Vital Signs - 24 hr 09/28/23 09/28/23 09/28/23 13:02 13:06 17:26 Temperature 36.8 C Heart Rate 87 83 79 Heart Rate [ Brachial] Heart Rate [ Monitoring electrodes] Respiratory 18 18 15 Rate Blood Pressure 116/66 109/60 176/97 H Blood Pressure [Right Brachial artery] O2 Saturation 96 95 98 09/28/23 09/28/23 09/28/23 19:00 21:00 22:00 Temperature Heart Rate 85 82 83 Heart Rate [ Brachial] Heart Rate [ Monitoring electrodes] Respiratory 17 17 17 Rate Blood Pressure 178/88 H 149/98 H 186/143 H Blood Pressure [Right Brachial artery] O2 Saturation 99 100 100 09/29/23 09/29/23 09/29/23 00:22 00:35 01:29 Temperature 36.5 C 37.2 C 37.1 C Heart Rate Heart Rate [ 79 Brachial] Heart Rate [ 82 Monitoring electrodes] Respiratory 17 16 Rate Blood Pressure Blood Pressure 169/92 H 165/88 H [Right Brachial artery] O2 Saturation 98 98 09/29/23 09/29/23 09/29/23 01:55 01:58 02:04 Temperature Heart Rate Heart Rate [ 74 Brachial] Heart Rate [ Monitoring electrodes] Respiratory Rate Blood Pressure 160/87 H Blood Pressure 149/94 H 173/72 H [Right Brachial artery] O2 Saturation 09/29/23 09/29/23 09/29/23 02:08 02:25 02:40 Temperature Heart Rate Heart Rate [ 86 83 Brachial] Heart Rate [ Monitoring electrodes] Respiratory Rate Blood Pressure 138/70 H Blood Pressure 154/65 H 125/67 145/85 H [Right Brachial artery] O2 Saturation 09/29/23 09/29/23 02:55 08:00 Temperature 36.6 C Heart Rate Heart Rate [ 80 Brachial] Heart Rate [ Monitoring electrodes] Respiratory 16 Rate Blood Pressure Blood Pressure 138/70 H 141/77 H [Right Brachial artery] O2 Saturation 94 Oxygen O2 Source Room air I&O (Last 24 Hrs): Intake and Output Totals x24h 02/01/24 02/02/24 02/03/24 23:59 23:59 23:59 Intake Total 1500 240 Balance 1500 240 General: Alert, No acute distress HEENT: EOMI Neck: Supple, No JVD, No thyromegaly Neuro: Alert, Non Focal Cardiovascular: Other (Positive S1-S2 no extra heart sounds.) Respiratory: Other (Fair air exchange in all lung quintana no wheezing no crackles.) Abdomen: Normal bowel sounds, Soft, No tenderness Extremities: No cyanosis, No edema Skin: No rashes - Results Results: Laboratory Results WBC 16.2 x10^3/uL (4.8-10.8) H 09/29/23 05:55 RBC 4.94 10^6/uL (4.70-6.10) 09/29/23 05:55 Hgb 16.3 g/dL (14.0-18.0) 09/29/23 05:55 Hct 48.7 % (42.0-52.0) 09/29/23 05:55 MCV 98.6 fL (80.0-94.0) H 09/29/23 05:55 MCH 33.0 pg (27.0-31.0) H 09/29/23 05:55 MCHC 33.5 g/dL (32.0-36.0) 09/29/23 05:55 RDW 13.5 % (12.0-15.0) 09/29/23 05:55 Plt Count 182 10^3/uL (130-450) 09/29/23 05:55 MPV 10.4 fL (7.4-11.4) 09/29/23 05:55 Neut # (Auto) 12.3 10^3/uL (1.5-6.6) H 09/29/23 05:55 Lymph # (Auto) 2.1 10^3/uL (1.5-3.5) 09/29/23 05:55 [place] # (Auto) 1.6 10^3/uL (0.0-1.0) H 09/29/23 05:55 Eos # (Auto) 0.1 10^3/uL (0.0-0.7) 09/29/23 05:55 Baso # (Auto) 0.1 10^3/uL (0.0-0.1) 09/29/23 05:55 Absolute Nucleated RBC 0.00 x10^3/uL 09/29/23 05:55 Nucleated RBC % 0.0 /100WBC 09/29/23 05:55 Manual Slide Review Indicated 09/29/23 05:55 WBC Morphology NORMAL APPEARANCE (NORMAL) 09/29/23 05:55 Platelet Estimate NORMAL (130-450,000) (NORMAL) 09/29/23 05:55 Platelet Morphology NORMAL APPEARANCE (NORMAL) 09/29/23 05:55 RBC Morph Micro Appear NORMAL APPEARANCE (NORMAL) 09/29/23 05:55 Sodium 142 mmol/L (135-145) 09/29/23 05:55 Potassium 4.3 mmol/L (3.5-4.5) 09/29/23 05:55 Chloride 108 mmol/L (101-111) 09/29/23 05:55 Carbon Dioxide 20 mmol/L (21-32) L 09/29/23 05:55 Anion Gap 14.0 (6-13) H 09/29/23 05:55 BUN 51 mg/dL (6-20) H 09/29/23 05:55 Creatinine 2.2 mg/dL (0.6-1.3) H 09/29/23 05:55 Estimated GFR (MDRD) 29 (>89) L 09/29/23 05:55 Glucose 62 mg/dL (74-104) L 09/29/23 05:55 POC Whole Bld Glucose 123 mg/dL (70 - 100) H 09/29/23 11:41 Estimat Average Glucose 151 mg/dL (70-100) H 09/29/23 05:55 Hemoglobin A1c % 6.9 % (4.27-6.07) H 09/29/23 05:55 Calcium 9.2 mg/dL (8.5-10.3) 09/29/23 05:55 Magnesium 1.9 mg/dL (1.7-2.3) 09/28/23 13:47 Total Bilirubin 1.0 mg/dL (0.2-1.0) 09/28/23 13:47 AST 18 IU/L (10-42) 09/28/23 13:47 ALT 11 IU/L (10-60) 09/28/23 13:47 Alkaline Phosphatase 63 IU/L (42-121) 09/28/23 13:47 Troponin I High Sens 52.8 ng/L (2.3-19.7) H* 09/29/23 05:55 B-Natriuretic Peptide 208 pg/mL (5-100) H 09/28/23 13:47 Total Protein 7.0 g/dL (6.4-8.9) 09/28/23 13:47 Albumin 3.8 g/dL (3.2-5.5) 09/28/23 13:47 Globulin 3.2 g/dL (2.1-4.2) 09/28/23 13:47 Albumin/Globulin Ratio 1.2 (1.0-2.2) 09/28/23 13:47 Lipase < 10 U/L (11-82) L 09/28/23 13:47 Nasal Adenovirus (PCR) NOT DETECTED 09/28/23 17:23 Nasal B. parapertussis DNA (PCR) NOT DETECTED 09/28/23 17:23 Nasal Coronavir 229E PCR NOT DETECTED 09/28/23 17:23 Nasal Coronavir HKU1 PCR NOT DETECTED 09/28/23 17:23 Nasal Coronavir NL63 PCR NOT DETECTED 09/28/23 17:23 Nasal Coronavir OC43 PCR NOT DETECTED 09/28/23 17:23 Nasal Enterovir/Rhinovir PCR NOT DETECTED 09/28/23 17:23 Nasal Influenza B PCR NOT DETECTED 09/28/23 17:23 Nasal Influenza A PCR NOT DETECTED 09/28/23 17:23 Nasal Parainfluen 1 PCR NOT DETECTED 09/28/23 17:23 Nasal Parainfluen 2 PCR NOT DETECTED 09/28/23 17:23 Nasal Parainfluen 3 PCR NOT DETECTED 09/28/23 17:23 Nasal Parainfluen 4 PCR NOT DETECTED 09/28/23 17:23 Nasal RSV (PCR) NOT DETECTED 09/28/23 17:23 Nasal B.pertussis DNA PCR NOT DETECTED 09/28/23 17:23 Nasal C.pneumoniae (PCR) NOT DETECTED 09/28/23 17:23 Gage Human Metapneumo PCR NOT DETECTED 09/28/23 17:23 Nasal M.pneumoniae (PCR) NOT DETECTED 09/28/23 17:23 Nasal SARS-CoV-2 (PCR) NOT DETECTED 09/28/23 17:23 - Procedures Procedures: Procedures DRAINAGE OF STOMACH WITH DRAINAGE DEVICE, VIA OPENING (09/25/15) EXCISION OF CECUM, ENDO (09/11/16) EXCISION OF RECTUM, ENDO (09/11/16) EXCISION OF SIGMOID COLON, ENDO (09/11/16) REPAIR OF MALLET FINGER (02/26/14) Current Medications - Current Medications Current Medications: Active Medications Acetaminophen (Acetaminophen 325 Mg Tablet) 650 mg PO Q4HR PRN PRN Reason: Pain 1 to 4, or Fever Aspirin (Aspirin Ec 81 Mg Tablet) 81 mg PO DAILY [facility] Last Admin: 09/30/23 08:43 Dose: 81 mg Atorvastatin Calcium (Atorvastatin 40 Mg Tablet) 40 mg PO QPM [facility] Last Admin: 09/29/23 21:10 Dose: 40 mg Heparin Sodium (Porcine) (Heparin 5,000 Unit/Ml Vial) 5,000 unit SUBQ BID [facility] Last Admin: 09/30/23 08:43 Dose: 5,000 unit Hydralazine HCl (Hydralazine Inj 20 Mg/Ml Vial) 10 mg IVP Q6H PRN PRN Reason: SBP> or= 160 OR DBP> or= 110 Last Admin: 09/30/23 00:04 Dose: 10 mg Insulin Human Lispro (Insulin Lispro 300 Unit/3 Ml Pen) 1 - 9 unit SUBQ 0800,1200,1700,2100 [facility]; Protocol Last Admin: 09/30/23 12:11 Dose: 3 unit Sodium Chloride (Sodium Chloride Flush 0.9% 10 Ml Syringe) 10 ml IVP PRN PRN PRN Reason: NEEDED PER PROVIDER ORDERS Sodium Chloride (Sodium Chloride Flush 0.9% 10 Ml Syringe) 10 ml IVP 0100,0900,1700 [facility] Last Admin: 09/30/23 08:47 Dose: 10 ml Zinc Oxide (Cod Liver Oil/Zinc Oxide 113 Gm Tube) 113 gm TOP PRN PRN PRN Reason: Skin Care Last Admin: 09/29/23 13:54 Dose: 1 applic Aspirin [Aspir 81] 81 mg PO DAILY 02/25/14 Atorvastatin [Lipitor] 40 mg PO QPM 02/25/14 Canagliflozin [Invokana] 300 mg PO 09/11/16 Nebivolol HCl [Bystolic] 20 mg PO 09/11/16 Potassium Chloride 20 mg PO 09/11/16 Liraglutide [Victoza 2-Kei] 09/24/18 [place] 09/24/18
[2023-09-29 12:09] LABS: BILIRUBIN,URINE NEGATIVE (NEGATIVE); GLUCOSE, URINE (UA) NEGATIVE (NEGATIVE); KETONES,URINE (UA) NEGATIVE (NEGATIVE); LEUKOCYTE ESTERASE, URINE NEGATIVE (NEGATIVE); NITRITE,URINE NEGATIVE (NEGATIVE); OCCULT BLOOD,URINE LARGE (NEGATIVE); PH,URINE 5.5 PH (5.0-7.5); PROTEIN,URINE TRACE mg/dL (NEGATIVE); UROBILINOGEN,URINE 0.2 (NORMAL) E.U./dL (NORMAL)
[2023-09-29 12:29] LABS: CLARITY,URINE CLEAR (CLEAR)
[2023-09-29 12:35] LABS: BACTERIA,URINE Rare /HPF (None Seen); SQUAMOUS EPITHELIAL CELL,UR RARE Squamous (<= Few); WBC,URINE 0-3 /HPF (0-3)
[2023-09-29] MEDS: COD LIVER OIL/ZINC OXIDE 113 GM TUBE TOP PRN (13:54)
[2023-09-29] MEDS: ATORVASTATIN 40 MG TABLET PO SCH (21:10)
[2023-09-30 08:39] LABS: BASOPHILS # (AUTO) 0.1 10^3/uL (0.0-0.1); BASOPHILS % (AUTO) 0.5 %; EOSINOPHILS # (AUTO) 0.3 10^3/uL (0.0-0.7); EOSINOPHILS % (AUTO) 2.6 %; HCT - HEMATOCRIT 44.7 % (42.0-52.0); HGB - HEMOGLOBIN 15.2 g/dL (14.0-18.0); LYMPHOCYTES # (AUTO) 2.1 10^3/uL (1.5-3.5); LYMPHOCYTES % (AUTO) 15.9 %; MEAN CORPUSCULAR HEMOGLOBIN 32.7 pg (27.0-31.0); MEAN CORPUSCULAR VOLUME 96.1 fL (80.0-94.0); MEAN PLATELET VOLUME 10.3 fL (7.4-11.4); MONOCYTES # (AUTO) 1.2 10^3/uL (0.0-1.0); MONOCYTES % (AUTO) 8.9 %; NEUTROPHILS # (AUTO) 9.3 10^3/uL (1.5-6.6); NEUTROPHILS % (AUTO) 71.8 %; PLT - PLATELET COUNT 169 10^3/uL (130-450); RED BLOOD COUNT 4.65 10^6/uL (4.70-6.10); RED CELL DISTRIBUTION WIDTH 12.9 % (12.0-15.0)
[2023-09-30 08:59] LABS: CALCIUM 8.6 mg/dL (8.5-10.3); CREATININE 1.2 mg/dL (0.6-1.3); MAGNESIUM 1.5 mg/dL (1.7-2.3); PHOSPHORUS 2.6 mg/dL (2.5-5.0); POTASSIUM 3.8 mmol/L (3.5-4.5)
--- NOTE | 2023-09-30 14:52 | PROVIDER PROGRESS NOTE ---
Assessment/Plan - Problem List (1) Acute metabolic encephalopathy Assessment/Plan: Etiology of mental status changes is not clear but most likely related to patient's episode of hypoglycemia and acute kidney injury. Plan: Continue to monitor mental status. Discussed with social work if patient is safe to live at home alone independently. (2) VILMA on CKD III Creatinine continues to improve and is 1.2 today. Continue to follow renal function. IV fluids discontinued. Encourage p.o. intake. (3) Hypoglycemia Initial serum glucose on presentation was 45. Social work, physical therapy and occupational therapy to assist in determining if patient is safe for return to home. Continue diabetic diet. (4) Leukocytosis Most likely related to the use stress. There is no clear source of infection at this time. Continue to monitor. (5) Diabetes Mellitus type II Plan: Sliding scale insulin Continue to monitor serum glucose DVT ppx: Heparin subcutaneously Patient continues to require hospitalization to monitor his serum glucose. If his serum glucose remained stable, he most likely can be discharged tomorrow. - Current Meds Current Meds: Current Medications Generic Name Dose Route Start Last Admin Trade Name Freq PRN Reason Stop Dose Admin Aspirin 81 mg 09/29/23 09:00 09/30/23 08:43 Aspirin Ec 81 Mg Tablet PO 81 mg DAILY LYDIA Administration Atorvastatin Calcium 40 mg 09/29/23 21:00 09/29/23 21:10 Atorvastatin 40 Mg Tablet PO 40 mg QPM LYDIA Administration Heparin Sodium (Porcine) 5,000 unit 09/29/23 09:00 09/30/23 08:43 Heparin 5,000 Unit/Ml Vial SUBQ 5,000 unit BID LYDIA Administration Hydralazine HCl 10 mg 09/28/23 23:48 09/30/23 00:04 Hydralazine Inj 20 Mg/Ml Vial IVP 10 mg Q6H PRN Administration SBP> or= 160 OR DBP> or= 110 Insulin Human Lispro 1 - 9 unit 09/29/23 08:00 09/30/23 12:11 Insulin Lispro 300 Unit/3 Ml Pen SUBQ 3 unit 0800,1200,1700,2100 LYDIA Administration Protocol Sodium Chloride 10 ml 09/29/23 01:00 09/30/23 08:47 Sodium Chloride Flush 0.9% 10 Ml Syringe IVP 10 ml 0100,0900,1700 LYDIA Administration Zinc Oxide 113 gm 09/29/23 12:15 09/29/23 13:54 Cod Liver Oil/Zinc Oxide 113 Gm Tube TOP 1 applic PRN PRN Administration Skin Care - Lab Result Fish Bone Diagrams: 09/30/23 08:29 09/30/23 08:29 Subjective - Subjective Patient Reports: Other (Alert. Denies shortness of breath and chest pain. No complaints at this time.) Objective Vital Signs: Vital Signs - 24 hr 09/29/23 09/29/23 09/30/23 15:54 20:40 00:04 Temperature 36.7 C 37.1 C Heart Rate [ 76 73 Brachial] Respiratory 24 20 Rate Blood Pressure 169/82 H Blood Pressure 151/68 H [Left Brachial artery] Blood Pressure 131/82 H 173/81 H [Right Brachial artery] O2 Saturation 99 98 09/30/23 09/30/23 09/30/23 00:06 00:12 00:24 Temperature Heart Rate [ Brachial] Respiratory Rate Blood Pressure Blood Pressure [Left Brachial artery] Blood Pressure 165/80 H 149/68 H 153/64 H [Right Brachial artery] O2 Saturation 09/30/23 09/30/23 09/30/23 00:34 00:48 00:59 Temperature 36.6 C Heart Rate [ 67 Brachial] Respiratory 18 Rate Blood Pressure 153/70 H Blood Pressure [Left Brachial artery] Blood Pressure 153/70 H [Right Brachial artery] O2 Saturation 96 09/30/23 08:00 Temperature 37 C Heart Rate [ 96 Brachial] Respiratory 16 Rate Blood Pressure Blood Pressure [Left Brachial artery] Blood Pressure 142/67 H [Right Brachial artery] O2 Saturation 95 Oxygen O2 Source Room air I&O (Last 24 Hrs): Intake and Output Totals x24h 09/28/23 09/29/23 09/30/23 23:59 23:59 23:59 Intake Total 1500 1434 1480 Output Total 325 485 Balance 1500 1109 995 General: Alert, Cooperative HEENT: PERRLA Neck: Supple, No JVD, No thyromegaly Neuro: Alert, Non Focal Cardiovascular: Other (Positive S1-S2 no extra heart sounds) Respiratory: Other (Good air exchange in all lung quintana no wheezing no crackles) Abdomen: Normal bowel sounds, Soft, No tenderness Extremities: No cyanosis, No edema Skin: No rashes - Results Results: Laboratory Results WBC 13.0 x10^3/uL (4.8-10.8) H 09/30/23 08: RBC 4.65 10^6/uL (4.70-6.10) L 09/30/23 08: Hgb 15.2 g/dL (14.0-18.0) 09/30/23 08: Hct 44.7 % (42.0-52.0) 09/30/23 08: MCV 96.1 fL (80.0-94.0) H 09/30/23 08:29 MCH 32.7 pg (27.0-31.0) H 09/30/23 08: MCHC 34.0 g/dL (32.0-36.0) 09/30/23 08: RDW 12.9 % (12.0-15.0) 09/30/23 08: Plt Count 169 10^3/uL (130-450) 09/30/23 08: MPV 10.3 fL (7.4-11.4) 09/30/23 08: Neut # (Auto) 9.3 10^3/uL (1.5-6.6) H 09/30/23 08:29 Lymph # (Auto) 2.1 10^3/uL (1.5-3.5) 09/30/23 08: [place] # (Auto) 1.2 10^3/uL (0.0-1.0) H 09/30/23 08:29 Eos # (Auto) 0.3 10^3/uL (0.0-0.7) 09/30/23 08: Baso # (Auto) 0.1 10^3/uL (0.0-0.1) 09/30/23 08: Absolute Nucleated RBC 0.00 x10^3/uL 09/30/23 08: Nucleated RBC % 0.0 /100WBC 09/30/23 08:29 Manual Slide Review Indicated 09/29/23 05:55 WBC Morphology NORMAL APPEARANCE (NORMAL) 09/29/23 05:55 Platelet Estimate NORMAL (130-450,000) (NORMAL) 09/29/23 05:55 Platelet Morphology NORMAL APPEARANCE (NORMAL) 09/29/23 05:55 RBC Morph Micro Appear NORMAL APPEARANCE (NORMAL) 09/29/23 05:55 Sodium 137 mmol/L (135-145) 09/30/23 08:29 Potassium 3.8 mmol/L (3.5-4.5) 09/30/23 08:29 Chloride 106 mmol/L (101-111) 09/30/23 08:29 Carbon Dioxide 24 mmol/L (21-32) 09/30/23 08:29 Anion Gap 7.0 (6-13) 09/30/23 08:29 BUN 30 mg/dL (6-20) H 09/30/23 08:29 Creatinine 1.2 mg/dL (0.6-1.3) 09/30/23 08:29 Estimated GFR (MDRD) 58 (>89) L 09/30/23 08:29 Glucose 104 mg/dL (74-104) 09/30/23 08:29 POC Whole Bld Glucose 192 mg/dL (70 - 100) H 09/30/23 11:34 Estimat Average Glucose 151 mg/dL (70-100) H 09/29/23 05:55 Hemoglobin A1c % 6.9 % (4.27-6.07) H 09/29/23 05:55 Calcium 8.6 mg/dL (8.5-10.3) 09/30/23 08:29 Phosphorus 2.6 mg/dL (2.5-5.0) 09/30/23 08:29 Magnesium 1.5 mg/dL (1.7-2.3) L 09/30/23 08:29 Total Bilirubin 1.0 mg/dL (0.2-1.0) 09/28/23 13:47 AST 18 IU/L (10-42) 09/28/23 13:47 ALT 11 IU/L (10-60) 09/28/23 13:47 Alkaline Phosphatase 63 IU/L (42-121) 09/28/23 13:47 Troponin I High Sens 52.8 ng/L (2.3-19.7) H* 09/29/23 05:55 B-Natriuretic Peptide 208 pg/mL (5-100) H 09/28/23 13:47 Total Protein 7.0 g/dL (6.4-8.9) 09/28/23 13:47 Albumin 3.8 g/dL (3.2-5.5) 09/28/23 13:47 Globulin 3.2 g/dL (2.1-4.2) 09/28/23 13:47 Albumin/Globulin Ratio 1.2 (1.0-2.2) 09/28/23 13:47 Lipase < 10 U/L (11-82) L 09/28/23 13:47 Urine Color YELLOW 09/29/23 10:30 Urine Clarity CLEAR (CLEAR) 09/29/23 10:30 Urine pH 5.5 PH (5.0-7.5) 09/29/23 10:30 Ur Specific [place] 1.025 (1.002-1.030) 09/29/23 10:30 Urine Protein TRACE mg/dL (NEGATIVE) 09/29/23 10:30 Urine Glucose (UA) NEGATIVE mg/dL (NEGATIVE) 09/29/23 10:30 Urine Ketones NEGATIVE mg/dL (NEGATIVE) 09/29/23 10:30 Urine Occult Blood LARGE (NEGATIVE) H 09/29/23 10:30 Urine Nitrite NEGATIVE (NEGATIVE) 09/29/23 10:30 Urine Bilirubin NEGATIVE (NEGATIVE) 09/29/23 10:30 Urine Urobilinogen 0.2 (NORMAL) E.U./dL (NORMAL) 09/29/23 10:30 Ur Leukocyte Esterase NEGATIVE (NEGATIVE) 09/29/23 10:30 Urine RBC 11-25 /HPF (0-5) H 09/29/23 10:30 Urine WBC 0-3 /HPF (0-3) 09/29/23 10:30 Ur Squamous Epith Cells RARE Squamous (<= Few) 09/29/23 10:30 Urine Bacteria Rare /HPF (None Seen) 09/29/23 10:30 Ur Microscopic Review INDICATED 09/29/23 10:30 Urine Culture Comments NOT INDICATED 09/29/23 10:30 Nasal Adenovirus (PCR) NOT DETECTED 09/28/23 17:23 Nasal B. parapertussis DNA (PCR) NOT DETECTED 09/28/23 17:23 Nasal Coronavir 229E PCR NOT DETECTED 09/28/23 17:23 Nasal Coronavir HKU1 PCR NOT DETECTED 09/28/23 17:23 Nasal Coronavir NL63 PCR NOT DETECTED 09/28/23 17:23 Nasal Coronavir OC43 PCR NOT DETECTED 09/28/23 17:23 Nasal Enterovir/Rhinovir PCR NOT DETECTED 09/28/23 17:23 Nasal Influenza B PCR NOT DETECTED 09/28/23 17:23 Nasal Influenza A PCR NOT DETECTED 09/28/23 17:23 Nasal Parainfluen 1 PCR NOT DETECTED 09/28/23 17:23 Nasal Parainfluen 2 PCR NOT DETECTED 09/28/23 17:23 Nasal Parainfluen 3 PCR NOT DETECTED 09/28/23 17:23 Nasal Parainfluen 4 PCR NOT DETECTED 09/28/23 17:23 Nasal RSV (PCR) NOT DETECTED 09/28/23 17:23 Nasal B.pertussis DNA PCR NOT DETECTED 09/28/23 17:23 Nasal C.pneumoniae (PCR) NOT DETECTED 09/28/23 17:23 Gage Human Metapneumo PCR NOT DETECTED 09/28/23 17:23 Nasal M.pneumoniae (PCR) NOT DETECTED 09/28/23 17:23 Nasal SARS-CoV-2 (PCR) NOT DETECTED 09/28/23 17:23 - Procedures Procedures: Procedures DRAINAGE OF STOMACH WITH DRAINAGE DEVICE, VIA OPENING (09/25/15) EXCISION OF CECUM, ENDO (09/11/16) EXCISION OF RECTUM, ENDO (09/11/16) EXCISION OF SIGMOID COLON, ENDO (09/11/16) REPAIR OF MALLET FINGER (02/26/14) ABX Reporting Has patient been on IV antibiotics over the past 48 hours?: No Current Medications - Current Medications Current Medications: Active Medications Acetaminophen (Acetaminophen 325 Mg Tablet) 650 mg PO Q4HR PRN PRN Reason: Pain 1 to 4, or Fever Aspirin (Aspirin Ec 81 Mg Tablet) 81 mg PO DAILY [facility] Last Admin: 09/30/23 08:43 Dose: 81 mg Atorvastatin Calcium (Atorvastatin 40 Mg Tablet) 40 mg PO QPM [facility] Last Admin: 09/29/23 21:10 Dose: 40 mg Heparin Sodium (Porcine) (Heparin 5,000 Unit/Ml Vial) 5,000 unit SUBQ BID [facility] Last Admin: 09/30/23 08:43 Dose: 5,000 unit Hydralazine HCl (Hydralazine Inj 20 Mg/Ml Vial) 10 mg IVP Q6H PRN PRN Reason: SBP> or= 160 OR DBP> or= 110 Last Admin: 09/30/23 00:04 Dose: 10 mg Insulin Human Lispro (Insulin Lispro 300 Unit/3 Ml Pen) 1 - 9 unit SUBQ 0800,1200,1700,2100 [facility]; Protocol Last Admin: 09/30/23 12:11 Dose: 3 unit Magnesium Oxide (Magnesium Oxide 400 Mg Tablet) 400 mg PO DAILYWM [facility] Sodium Chloride (Sodium Chloride Flush 0.9% 10 Ml Syringe) 10 ml IVP PRN PRN PRN Reason: NEEDED PER PROVIDER ORDERS Sodium Chloride (Sodium Chloride Flush 0.9% 10 Ml Syringe) 10 ml IVP 0100,0900,1700 [facility] Last Admin: 09/30/23 08:47 Dose: 10 ml Zinc Oxide (Cod Liver Oil/Zinc Oxide 113 Gm Tube) 113 gm TOP PRN PRN PRN Reason: Skin Care Last Admin: 09/29/23 13:54 Dose: 1 applic Aspirin [Aspir 81] 81 mg PO DAILY 02/25/14 Atorvastatin [Lipitor] 40 mg PO QPM 02/25/14 Canagliflozin [Invokana] 300 mg PO 09/11/16 Nebivolol HCl [Bystolic] 20 mg PO 09/11/16 Potassium Chloride 20 mg PO 09/11/16 Liraglutide [Victoza 2-Kei] 09/24/18 Conguamin 09/24/18
[2023-09-30] MEDS: MAGNESIUM OXIDE 400 MG TABLET PO SCH (17:05)
[2023-10-01 05:45] LABS: BASOPHILS % (AUTO) 0.4 %; EOSINOPHILS # (AUTO) 0.3 10^3/uL (0.0-0.7); EOSINOPHILS % (AUTO) 2.5 %; HCT - HEMATOCRIT 38.8 % (42.0-52.0); LYMPHOCYTES # (AUTO) 1.7 10^3/uL (1.5-3.5); LYMPHOCYTES % (AUTO) 17.6 %; MEAN CORPUSCULAR HEMOGLOBIN 31.9 pg (27.0-31.0); MEAN CORPUSCULAR HGB CONC 33.5 g/dL (32.0-36.0); MEAN CORPUSCULAR VOLUME 95.3 fL (80.0-94.0); MEAN PLATELET VOLUME 10.9 fL (7.4-11.4); MONOCYTES % (AUTO) 10.2 %; NEUTROPHILS # (AUTO) 6.8 10^3/uL (1.5-6.6); NEUTROPHILS % (AUTO) 68.9 %; PLT - PLATELET COUNT 154 10^3/uL (130-450); RED BLOOD COUNT 4.07 10^6/uL (4.70-6.10); RED CELL DISTRIBUTION WIDTH 12.6 % (12.0-15.0); WHITE BLOOD COUNT 9.8 x10^3/uL (4.8-10.8)
[2023-10-01 06:13] LABS: CALCIUM 8.6 mg/dL (8.5-10.3); CREATININE 1.2 mg/dL (0.6-1.3); MAGNESIUM 1.5 mg/dL (1.7-2.3); PHOSPHORUS 2.3 mg/dL (2.5-5.0)
--- NOTE | 2023-10-01 10:35 | PHARMACY PROGRESS NOTE ---
- Best Possible Medication History Admit Date and Time: 09/28/23 7602 Processed by: Pharmacy Medication History completed: Yes Patient Interview: Pt unable to participate Secondary Source(s): Physician records, Insurance records As the person ultimately responsible for medication therapy, providers are able to order a medication from an existing home medication list in [facility] via the "Reconcile Routine" prior to Confirmation of that medication by administrative support manager. Such practice is discouraged except when the physician, in their clinical judgment, deems that a medical need exists for a medication without regard to previous use.
--- NOTE | 2023-10-01 19:28 | PROVIDER PROGRESS NOTE ---
Assessment/Plan - Problem List (1) Acute metabolic encephalopathy Assessment/Plan: Etiology of mental status changes is not clear but most likely related to patient's episode of hypoglycemia and acute kidney injury. Plan: Continue to monitor mental status. Tentative plan is for patient to discharge to home with his son after evaluation by physical therapy. Physical therapy has not been able to see the patient today. Patient is medically cleared. (2) VILMA on CKD III Creatinine continues to improve and is 1.2 today. Continue to follow renal function. IV fluids discontinued. Encourage p.o. intake. (3) Hypoglycemia Initial serum glucose on presentation was 45. Patient takes Dulaglutdie and reportedly takes Invokana. He reportedly is not on any insulin. Both Dulaglutide and Invokana may cause hypoglycemia. Recommend discontinuing both of these medications upon discharge and have patient follow- up with his primary care provider to sort out the best treatment for his diabetes mellitus type 2 Continue diabetic diet. Resolved. (4) Leukocytosis Most likely related to the use stress. There is no clear source of infection at this time. Continue to monitor. (5) Diabetes Mellitus type II Plan: Sliding scale insulin Continue to monitor serum glucose DVT ppx: Heparin subcutaneously - Current Meds Current Meds: Current Medications Generic Name Dose Route Start Last Admin Trade Name Freq PRN Reason Stop Dose Admin Aspirin 81 mg 09/29/23 09:00 10/01/23 10:34 Aspirin Ec 81 Mg Tablet PO 81 mg DAILY LYDIA Administration Atorvastatin Calcium 40 mg 09/29/23 21:00 09/30/23 21:04 Atorvastatin 40 Mg Tablet PO 40 mg QPM LYDIA Administration Heparin Sodium (Porcine) 5,000 unit 09/29/23 09:00 10/01/23 10:36 Heparin 5,000 Unit/Ml Vial SUBQ 5,000 unit BID LYDIA Administration Hydralazine HCl 10 mg 09/28/23 23:48 10/01/23 17:17 Hydralazine Inj 20 Mg/Ml Vial IVP 10 mg Q6H PRN Administration SBP> or= 160 OR DBP> or= 110 Insulin Human Lispro 1 - 9 unit 09/29/23 08:00 10/01/23 17:03 Insulin Lispro 300 Unit/3 Ml Pen SUBQ 3 unit 0800,1200,1700,2100 LYDIA Administration Protocol Magnesium Oxide 400 mg 09/30/23 15:00 10/01/23 10:34 Magnesium Oxide 400 Mg Tablet PO 400 mg DAILYWM LYDIA Administration Sodium Chloride 10 ml 09/29/23 01:00 10/01/23 17:03 Sodium Chloride Flush 0.9% 10 Ml Syringe IVP 10 ml 0100,0900,1700 LYDIA Administration Zinc Oxide 113 gm 09/29/23 12:15 10/01/23 00:26 Cod Liver Oil/Zinc Oxide 113 Gm Tube TOP 1 applic PRN PRN Administration Skin Care - Lab Result Fish Bone Diagrams: 10/01/23 05:25 10/01/23 05:25 Subjective - Subjective Patient Reports: Other (Alert. Denies chest pain dyspnea abdominal pain. No other complaints at this time.) Objective Vital Signs: Vital Signs - 24 hr 10/01/23 10/01/23 10/01/23 00:28 00:40 08:00 Temperature 37.6 C 37.1 C Heart Rate [ 80 72 Brachial] Heart Rate [ Sitting] Heart Rate [ Standing] Heart Rate [ Supine] Respiratory 18 18 Rate Blood Pressure Blood Pressure 157/79 H 168/84 H [Right Brachial artery] Blood Pressure [Sitting] Blood Pressure [Standing] Blood Pressure [Supine] O2 Saturation 96 94 O2 Saturation [ Sitting] O2 Saturation [ Standing] O2 Saturation [ Supine] 10/01/23 10/01/23 10/01/23 11:36 15:45 17:17 Temperature 37.2 C Heart Rate [ 67 Brachial] Heart Rate [ 74 Sitting] Heart Rate [ 83 Standing] Heart Rate [ 67 Supine] Respiratory 16 Rate Blood Pressure 183/85 H Blood Pressure 183/85 H [Right Brachial artery] Blood Pressure 165/71 H [Sitting] Blood Pressure 158/107 H [Standing] Blood Pressure 182/84 H [Supine] O2 Saturation 95 O2 Saturation [ 95 Sitting] O2 Saturation [ 95 Standing] O2 Saturation [ 95 Supine] 10/01/23 18:00 Temperature Heart Rate [ Brachial] Heart Rate [ Sitting] Heart Rate [ Standing] Heart Rate [ Supine] Respiratory Rate Blood Pressure Blood Pressure 158/66 H [Right Brachial artery] Blood Pressure [Sitting] Blood Pressure [Standing] Blood Pressure [Supine] O2 Saturation O2 Saturation [ Sitting] O2 Saturation [ Standing] O2 Saturation [ Supine] Oxygen O2 Source Room air I&O (Last 24 Hrs): Intake and Output Totals x24h 09/29/23 09/30/23 10/01/23 23:59 23:59 23:59 Intake Total 1434 3967 840 Output Total 325 585 925 Balance 1109 1502 -85 General: Alert, Oriented x3, No acute distress HEENT: Atraumatic Neck: Supple, No JVD, No thyromegaly Neuro: Alert, Disoriented, Non Focal Cardiovascular: Regular rate, Normal S1, Normal S2, No murmurs Respiratory: Chest non-tender, No respiratory distress, Breath sounds nml Abdomen: Normal bowel sounds, Soft, No tenderness Extremities: No clubbing, No cyanosis, No edema Skin: No rashes - Results Results: Laboratory Results WBC 9.8 x10^3/uL (4.8-10.8) 10/01/23 05:25 RBC 4.07 10^6/uL (4.70-6.10) L 10/01/23 05:25 Hgb 13.0 g/dL (14.0-18.0) L 10/01/23 05:25 Hct 38.8 % (42.0-52.0) L 10/01/23 05:25 MCV 95.3 fL (80.0-94.0) H 10/01/23 05:25 MCH 31.9 pg (27.0-31.0) H 10/01/23 05:25 MCHC 33.5 g/dL (32.0-36.0) 10/01/23 05:25 RDW 12.6 % (12.0-15.0) 10/01/23 05:25 Plt Count 154 10^3/uL (130-450) 10/01/23 05:25 MPV 10.9 fL (7.4-11.4) 10/01/23 05:25 Neut # (Auto) 6.8 10^3/uL (1.5-6.6) H 10/01/23 05:25 Lymph # (Auto) 1.7 10^3/uL (1.5-3.5) 10/01/23 05:25 [place] # (Auto) 1.0 10^3/uL (0.0-1.0) 10/01/23 05:25 Eos # (Auto) 0.3 10^3/uL (0.0-0.7) 10/01/23 05:25 Baso # (Auto) 0.0 10^3/uL (0.0-0.1) 10/01/23 05:25 Absolute Nucleated RBC 0.00 x10^3/uL 10/01/23 05:25 Nucleated RBC % 0.0 /100WBC 10/01/23 05:25 Manual Slide Review Indicated 09/29/23 05:55 WBC Morphology NORMAL APPEARANCE (NORMAL) 09/29/23 05:55 Platelet Estimate NORMAL (130-450,000) (NORMAL) 09/29/23 05:55 Platelet Morphology NORMAL APPEARANCE (NORMAL) 09/29/23 05:55 RBC Morph Micro Appear NORMAL APPEARANCE (NORMAL) 09/29/23 05:55 Sodium 134 mmol/L (135-145) L 10/01/23 05:25 Potassium 4.0 mmol/L (3.5-4.5) 10/01/23 05:25 Chloride 103 mmol/L (101-111) 10/01/23 05:25 Carbon Dioxide 25 mmol/L (21-32) 10/01/23 05:25 Anion Gap 6.0 (6-13) 10/01/23 05:25 BUN 26 mg/dL (6-20) H 10/01/23 05:25 Creatinine 1.2 mg/dL (0.6-1.3) 10/01/23 05:25 Estimated GFR (MDRD) 58 (>89) L 10/01/23 05:25 Glucose 163 mg/dL (74-104) H 10/01/23 05:25 POC Whole Bld Glucose 183 mg/dL (70 - 100) H 10/01/23 16:18 Estimat Average Glucose 151 mg/dL (70-100) H 09/29/23 05:55 Hemoglobin A1c % 6.9 % (4.27-6.07) H 09/29/23 05:55 Calcium 8.6 mg/dL (8.5-10.3) 10/01/23 05:25 Phosphorus 2.3 mg/dL (2.5-5.0) L 10/01/23 05:25 Magnesium 1.5 mg/dL (1.7-2.3) L 10/01/23 05:25 Total Bilirubin 1.0 mg/dL (0.2-1.0) 09/28/23 13:47 AST 18 IU/L (10-42) 09/28/23 13:47 ALT 11 IU/L (10-60) 09/28/23 13:47 Alkaline Phosphatase 63 IU/L (42-121) 09/28/23 13:47 Troponin I High Sens 52.8 ng/L (2.3-19.7) H* 09/29/23 05:55 B-Natriuretic Peptide 208 pg/mL (5-100) H 09/28/23 13:47 Total Protein 7.0 g/dL (6.4-8.9) 09/28/23 13:47 Albumin 3.8 g/dL (3.2-5.5) 09/28/23 13:47 Globulin 3.2 g/dL (2.1-4.2) 09/28/23 13:47 Albumin/Globulin Ratio 1.2 (1.0-2.2) 09/28/23 13:47 Lipase < 10 U/L (11-82) L 09/28/23 13:47 Urine Color YELLOW 09/29/23 10:30 Urine Clarity CLEAR (CLEAR) 09/29/23 10:30 Urine pH 5.5 PH (5.0-7.5) 09/29/23 10:30 Ur Specific [place] 1.025 (1.002-1.030) 09/29/23 10:30 Urine Protein TRACE mg/dL (NEGATIVE) 09/29/23 10:30 Urine Glucose (UA) NEGATIVE mg/dL (NEGATIVE) 09/29/23 10:30 Urine Ketones NEGATIVE mg/dL (NEGATIVE) 09/29/23 10:30 Urine Occult Blood LARGE (NEGATIVE) H 09/29/23 10:30 Urine Nitrite NEGATIVE (NEGATIVE) 09/29/23 10:30 Urine Bilirubin NEGATIVE (NEGATIVE) 09/29/23 10:30 Urine Urobilinogen 0.2 (NORMAL) E.U./dL (NORMAL) 09/29/23 10:30 Ur Leukocyte Esterase NEGATIVE (NEGATIVE) 09/29/23 10:30 Urine RBC 11-25 /HPF (0-5) H 09/29/23 10:30 Urine WBC 0-3 /HPF (0-3) 09/29/23 10:30 Ur Squamous Epith Cells RARE Squamous (<= Few) 09/29/23 10:30 Urine Bacteria Rare /HPF (None Seen) 09/29/23 10:30 Ur Microscopic Review INDICATED 09/29/23 10:30 Urine Culture Comments NOT INDICATED 09/29/23 10:30 Nasal Adenovirus (PCR) NOT DETECTED 09/28/23 17:23 Nasal B. parapertussis DNA (PCR) NOT DETECTED 09/28/23 17:23 Nasal Coronavir 229E PCR NOT DETECTED 09/28/23 17:23 Nasal Coronavir HKU1 PCR NOT DETECTED 09/28/23 17:23 Nasal Coronavir NL63 PCR NOT DETECTED 09/28/23 17:23 Nasal Coronavir OC43 PCR NOT DETECTED 09/28/23 17:23 Nasal Enterovir/Rhinovir PCR NOT DETECTED 09/28/23 17:23 Nasal Influenza B PCR NOT DETECTED 09/28/23 17:23 Nasal Influenza A PCR NOT DETECTED 09/28/23 17:23 Nasal Parainfluen 1 PCR NOT DETECTED 09/28/23 17:23 Nasal Parainfluen 2 PCR NOT DETECTED 09/28/23 17:23 Nasal Parainfluen 3 PCR NOT DETECTED 09/28/23 17:23 Nasal Parainfluen 4 PCR NOT DETECTED 09/28/23 17:23 Nasal RSV (PCR) NOT DETECTED 09/28/23 17:23 Nasal B.pertussis DNA PCR NOT DETECTED 09/28/23 17:23 Nasal C.pneumoniae (PCR) NOT DETECTED 09/28/23 17:23 Gage Human Metapneumo PCR NOT DETECTED 09/28/23 17:23 Nasal M.pneumoniae (PCR) NOT DETECTED 09/28/23 17:23 Nasal SARS-CoV-2 (PCR) NOT DETECTED 09/28/23 17:23 - Procedures Procedures: Procedures DRAINAGE OF STOMACH WITH DRAINAGE DEVICE, VIA OPENING (09/25/15) EXCISION OF CECUM, ENDO (09/11/16) EXCISION OF RECTUM, ENDO (09/11/16) EXCISION OF SIGMOID COLON, ENDO (09/11/16) REPAIR OF MALLET FINGER (02/26/14) Current Medications - Current Medications Current Medications: Active Medications Acetaminophen (Acetaminophen 325 Mg Tablet) 650 mg PO Q4HR PRN PRN Reason: Pain 1 to 4, or Fever Aspirin (Aspirin Ec 81 Mg Tablet) 81 mg PO DAILY [facility] Last Admin: 10/01/23 10:34 Dose: 81 mg Atorvastatin Calcium (Atorvastatin 40 Mg Tablet) 40 mg PO QPM [facility] Last Admin: 09/30/23 21:04 Dose: 40 mg Heparin Sodium (Porcine) (Heparin 5,000 Unit/Ml Vial) 5,000 unit SUBQ BID [facility] Last Admin: 10/01/23 10:36 Dose: 5,000 unit Hydralazine HCl (Hydralazine Inj 20 Mg/Ml Vial) 10 mg IVP Q6H PRN PRN Reason: SBP> or= 160 OR DBP> or= 110 Last Admin: 10/01/23 17:17 Dose: 10 mg Insulin Human Lispro (Insulin Lispro 300 Unit/3 Ml Pen) 1 - 9 unit SUBQ 0800,1200,1700,2100 [facility]; Protocol Last Admin: 10/01/23 17:03 Dose: 3 unit Magnesium Oxide (Magnesium Oxide 400 Mg Tablet) 400 mg PO DAILYWM [facility] Last Admin: 10/01/23 10:34 Dose: 400 mg Sodium Chloride (Sodium Chloride Flush 0.9% 10 Ml Syringe) 10 ml IVP PRN PRN PRN Reason: NEEDED PER PROVIDER ORDERS Sodium Chloride (Sodium Chloride Flush 0.9% 10 Ml Syringe) 10 ml IVP 0100,0900,1700 [facility] Last Admin: 10/01/23 17:03 Dose: 10 ml Zinc Oxide (Cod Liver Oil/Zinc Oxide 113 Gm Tube) 113 gm TOP PRN PRN PRN Reason: Skin Care Last Admin: 10/01/23 00:26 Dose: 1 applic Atorvastatin [Lipitor] 20 mg PO QPM 02/25/14 Dulaglutide [Trulicity] 1.5 mg SUBQ UD 10/01/23 Metoprolol Succinate [Toprol Xl] 50 mg PO DAILY 10/01/23 Potassium Chloride [Klor-Con 10] 10 meq PO DAILY 10/01/23
[2023-10-01] MEDS: INSULIN LISPRO 300 UNIT/3 ML PEN SUBQ SCH (21:10)
--- NOTE | 2023-10-02 18:47 | CT Report ---
PROCEDURE: Head WO INDICATIONS: Worsening confusion TECHNIQUE: Noncontrast 4.5 mm thick angled axial sections acquired from the foramen magnum to the vertex. For r adiation dose reduction, the following was used: automated exposure control, adjustment of mA and/or kV according to patient size. COMPARISON: 04/26/2016 FINDINGS: Image quality: Excellent. CSF spaces: Basal cisterns are patent. No extra-axial fluid collections. Ventricles are normal in size and shape. Brain: No midline shift. No intracranial masses or hemorrhage. [place]-white matter interface is norm al. Symmetric calcification of the basal ganglia can be seen, which is considered to be within bob l limits for age. Age-appropriate brain parenchymal volume loss and chronic small vessel ischemic c hange can be seen. Skull and face: Calvarium and visualized facial bones are intact, without suspicious lesions. Sinuses: Visualized sinuses and mastoids are clear. IMPRESSION: Noncontrast head CT within normal limits for age, without a cause of the patient's presenting history identified. Age-appropriate brain parenchymal volume loss and chronic small vessel ischemic change can be seen. Similar to prior. Reviewed by: Estuardo Seals MD on 10/02/2023 5:45 PM AKST Approved by: Estuardo Seals MD on 10/02/2023 5:45 PM [facility]ST Station ID: [id number]
--- NOTE | 2023-10-02 18:54 | PROVIDER PROGRESS NOTE ---
Assessment/Plan - Problem List (1) Acute metabolic encephalopathy Assessment/Plan: Cause of confusion is not entirely clear but most likely related to patient's episode of hypoglycemia and having acute kidney injury. I reviewed entire chart and no brain imaging was done Plan: Get Head CT>> this showed atrophy and small vessel disease, consistent with aging PT and OT evals ordered Tentative plan is for patient to discharge to home with his son after evaluation by PT and OT (2) Orthostatic hypotension His VS were reviewed and he is orthostatic. Likely due to poor oral intake and being on his usual meds Plan: This may delay his discharge. Meds will be adjusted to avoid orthostasis which could be adding to to brain hypoperfusion. (3) VILMA on CKD His creat was 3 at adm and baseline creat is 1.0. Creatinine continues to improve and was 1.2 yesterday, was not ordered to check today. IV fluids were given and now are discontinued. Plan: Continue to follow renal function. Encourage p.o. hydration (4) Hypoglycemia RESOLVED Initial serum glucose on presentation was 45. Patient takes Dulaglutdie and reportedly takes Invokana. He reportedly is not on any insulin. Both Dulaglutide and Invokana may cause hypoglycemia. Plan: I will recommend discontinuing both of these medications upon discharge and have patient follow-up with his primary care provider to sort out the best treatment for his diabetes mellitus type 2 Continue diabetic diet. Cont sliding scale insulin coverage Continue to monitor serum glucose (5) DM type II As per Hx. He was on aggressive management as an outpt with Trulicity, which is probably too aggressive for an 83 y/o. Plan: We held his Trulicity He is on a DM diet, and getting ss Ins for fingerstick results. (6) Poor memory The patient is bradykinetic, stares for a long time before responding. The workup is as in #[address] of the head today showing small vessel ischemia plus atrophy He probably has vascular dementia Plan: Waiting for PT and OT evaluations to recommend where he should be discharged to (7) Leukocytosis Most likely related to stress and demargination. There is no clear source of in fection at this time. - Current Meds Current Meds: Current Medications Generic Name Dose Route Start Last Admin Trade Name Freq PRN Reason Stop Dose Admin Aspirin 81 mg 09/29/23 09:00 10/02/23 08:33 Aspirin Ec 81 Mg Tablet PO 81 mg DAILY LYDIA Administration Atorvastatin Calcium 40 mg 09/29/23 21:00 10/01/23 21:10 Atorvastatin 40 Mg Tablet PO 40 mg QPM LYDIA Administration Heparin Sodium (Porcine) 5,000 unit 09/29/23 09:00 10/02/23 08:38 Heparin 5,000 Unit/Ml Vial SUBQ 5,000 unit BID LYDIA Administration Hydralazine HCl 10 mg 09/28/23 23:48 10/01/23 17:17 Hydralazine Inj 20 Mg/Ml Vial IVP 10 mg Q6H PRN Administration SBP> or= 160 OR DBP> or= 110 Insulin Human Lispro 2 - 10 unit 10/01/23 21:00 10/02/23 16:50 Insulin Lispro 300 Unit/3 Ml Pen SUBQ 4 unit 0800,1200,1700,2100 LYDIA Administration Protocol Magnesium Oxide 400 mg 09/30/23 15:00 10/02/23 08:33 Magnesium Oxide 400 Mg Tablet PO 400 mg DAILYWM LYDIA Administration Sodium Chloride 10 ml 09/29/23 01:00 10/02/23 16:51 Sodium Chloride Flush 0.9% 10 Ml Syringe IVP 10 ml 0100,0900,1700 LYDIA Administration Zinc Oxide 113 gm 09/29/23 12:15 10/01/23 00:26 Cod Liver Oil/Zinc Oxide 113 Gm Tube TOP 1 applic PRN PRN Administration Skin Care - Lab Result Fish Bone Diagrams: 10/04/23 05:03 10/04/23 05:03 - Additional Planning My Orders: My Active Orders 10/02/23 12:51 Orthostatic [Vital Signs - Orthostatic] [RC] QSHIFT Subjective - Subjective Patient Reports: Other (Asleep, is [place], but denies pain or other complaints) Objective Vital Signs: Vital Signs - 24 hr 10/01/23 10/02/23 10/02/23 23:52 08:05 08:36 Temperature 37.2 C 36.9 C Heart Rate [ 83 66 Brachial] Respiratory 18 20 Rate Blood Pressure 181/81 H [Left Brachial artery] Blood Pressure 136/73 H 182/91 H 126/61 [Right Brachial artery] O2 Saturation 95 96 10/02/23 16:00 Temperature 36.6 C Heart Rate [ 66 Brachial] Respiratory 20 Rate Blood Pressure [Left Brachial artery] Blood Pressure 169/78 H [Right Brachial artery] O2 Saturation 96 Oxygen O2 Source Room air I&O (Last 24 Hrs): Intake and Output Totals x24h 09/30/23 10/01/23 10/02/23 23:59 23:59 23:59 Intake Total 2087 890 960 Output Total 585 1025 725 Balance 1502 -135 235 General: Alert, Other (Appears tired) HEENT: EOMI Neck: Supple Neuro: Alert, Disoriented, Non Focal, Other (Answers are delayed, speech is min imal, moves allextrem spont) Cardiovascular: No murmurs Respiratory: No respiratory distress, Breath sounds nml Abdomen: Normal bowel sounds, Soft, Other (Obese) Extremities: Other (Trace pedal edema) - Results Results: Laboratory Results WBC 9.8 x10^3/uL (4.8-10.8) 10/01/23 05:25 RBC 4.07 10^6/uL (4.70-6.10) L 10/01/23 05:25 Hgb 13.0 g/dL (14.0-18.0) L 10/01/23 05:25 Hct 38.8 % (42.0-52.0) L 10/01/23 05:25 MCV 95.3 fL (80.0-94.0) H 10/01/23 05:25 MCH 31.9 pg (27.0-31.0) H 10/01/23 05:25 MCHC 33.5 g/dL (32.0-36.0) 10/01/23 05:25 RDW 12.6 % (12.0-15.0) 10/01/23 05:25 Plt Count 154 10^3/uL (130-450) 10/01/23 05:25 MPV 10.9 fL (7.4-11.4) 10/01/23 05:25 Neut # (Auto) 6.8 10^3/uL (1.5-6.6) H 10/01/23 05:25 Lymph # (Auto) 1.7 10^3/uL (1.5-3.5) 10/01/23 05:25 [place] # (Auto) 1.0 10^3/uL (0.0-1.0) 10/01/23 05:25 Eos # (Auto) 0.3 10^3/uL (0.0-0.7) 10/01/23 05:25 Baso # (Auto) 0.0 10^3/uL (0.0-0.1) 10/01/23 05:25 Absolute Nucleated RBC 0.00 x10^3/uL 10/01/23 05:25 Nucleated RBC % 0.0 /100WBC 10/01/23 05:25 Manual Slide Review Indicated 09/29/23 05:55 WBC Morphology NORMAL APPEARANCE (NORMAL) 09/29/23 05:55 Platelet Estimate NORMAL (130-450,000) (NORMAL) 09/29/23 05:55 Platelet Morphology NORMAL APPEARANCE (NORMAL) 09/29/23 05:55 RBC Morph Micro Appear NORMAL APPEARANCE (NORMAL) 09/29/23 05:55 Sodium 134 mmol/L (135-145) L 10/01/23 05:25 Potassium 4.0 mmol/L (3.5-4.5) 10/01/23 05:25 Chloride 103 mmol/L (101-111) 10/01/23 05:25 Carbon Dioxide 25 mmol/L (21-32) 10/01/23 05:25 Anion Gap 6.0 (6-13) 10/01/23 05:25 BUN 26 mg/dL (6-20) H 10/01/23 05:25 Creatinine 1.2 mg/dL (0.6-1.3) 10/01/23 05:25 Estimated GFR (MDRD) 58 (>89) L 10/01/23 05:25 Glucose 163 mg/dL (74-104) H 10/01/23 05:25 POC Whole Bld Glucose 187 mg/dL (70 - 100) H 10/02/23 16:46 Estimat Average Glucose 151 mg/dL (70-100) H 09/29/23 05:55 Hemoglobin A1c % 6.9 % (4.27-6.07) H 09/29/23 05:55 Calcium 8.6 mg/dL (8.5-10.3) 10/01/23 05:25 Phosphorus 2.3 mg/dL (2.5-5.0) L 10/01/23 05:25 Magnesium 1.5 mg/dL (1.7-2.3) L 10/01/23 05:25 Total Bilirubin 1.0 mg/dL (0.2-1.0) 09/28/23 13:47 AST 18 IU/L (10-42) 09/28/23 13:47 ALT 11 IU/L (10-60) 09/28/23 13:47 Alkaline Phosphatase 63 IU/L (42-121) 09/28/23 13:47 Troponin I High Sens 52.8 ng/L (2.3-19.7) H* 09/29/23 05:55 B-Natriuretic Peptide 208 pg/mL (5-100) H 09/28/23 13:47 Total Protein 7.0 g/dL (6.4-8.9) 09/28/23 13:47 Albumin 3.8 g/dL (3.2-5.5) 09/28/23 13:47 Globulin 3.2 g/dL (2.1-4.2) 09/28/23 13:47 Albumin/Globulin Ratio 1.2 (1.0-2.2) 09/28/23 13:47 Lipase < 10 U/L (11-82) L 09/28/23 13:47 Urine Color YELLOW 09/29/23 10:30 Urine Clarity CLEAR (CLEAR) 09/29/23 10:30 Urine pH 5.5 PH (5.0-7.5) 09/29/23 10:30 Ur Specific [place] 1.025 (1.002-1.030) 09/29/23 10:30 Urine Protein TRACE mg/dL (NEGATIVE) 09/29/23 10:30 Urine Glucose (UA) NEGATIVE mg/dL (NEGATIVE) 09/29/23 10:30 Urine Ketones NEGATIVE mg/dL (NEGATIVE) 09/29/23 10:30 Urine Occult Blood LARGE (NEGATIVE) H 09/29/23 10:30 Urine Nitrite NEGATIVE (NEGATIVE) 09/29/23 10:30 Urine Bilirubin NEGATIVE (NEGATIVE) 09/29/23 10:30 Urine Urobilinogen 0.2 (NORMAL) E.U./dL (NORMAL) 09/29/23 10:30 Ur Leukocyte Esterase NEGATIVE (NEGATIVE) 09/29/23 10:30 Urine RBC 11-25 /HPF (0-5) H 09/29/23 10:30 Urine WBC 0-3 /HPF (0-3) 09/29/23 10:30 Ur Squamous Epith Cells RARE Squamous (<= Few) 09/29/23 10:30 Urine Bacteria Rare /HPF (None Seen) 09/29/23 10:30 Ur Microscopic Review INDICATED 09/29/23 10:30 Urine Culture Comments NOT INDICATED 09/29/23 10:30 Nasal Adenovirus (PCR) NOT DETECTED 09/28/23 17:23 Nasal B. parapertussis DNA (PCR) NOT DETECTED 09/28/23 17:23 Nasal Coronavir 229E PCR NOT DETECTED 09/28/23 17:23 Nasal Coronavir HKU1 PCR NOT DETECTED 09/28/23 17:23 Nasal Coronavir NL63 PCR NOT DETECTED 09/28/23 17:23 Nasal Coronavir OC43 PCR NOT DETECTED 09/28/23 17:23 Nasal Enterovir/Rhinovir PCR NOT DETECTED 09/28/23 17:23 Nasal Influenza B PCR NOT DETECTED 09/28/23 17:23 Nasal Influenza A PCR NOT DETECTED 09/28/23 17:23 Nasal Parainfluen 1 PCR NOT DETECTED 09/28/23 17:23 Nasal Parainfluen 2 PCR NOT DETECTED 09/28/23 17:23 Nasal Parainfluen 3 PCR NOT DETECTED 09/28/23 17:23 Nasal Parainfluen 4 PCR NOT DETECTED 09/28/23 17:23 Nasal RSV (PCR) NOT DETECTED 09/28/23 17:23 Nasal B.pertussis DNA PCR NOT DETECTED 09/28/23 17:23 Nasal C.pneumoniae (PCR) NOT DETECTED 09/28/23 17:23 Gage Human Metapneumo PCR NOT DETECTED 09/28/23 17:23 Nasal M.pneumoniae (PCR) NOT DETECTED 09/28/23 17:23 Nasal SARS-CoV-2 (PCR) NOT DETECTED 09/28/23 17:23 - Procedures Procedures: Procedures DRAINAGE OF STOMACH WITH DRAINAGE DEVICE, VIA OPENING (09/25/15) EXCISION OF CECUM, ENDO (09/11/16) EXCISION OF RECTUM, ENDO (09/11/16) EXCISION OF SIGMOID COLON, ENDO (09/11/16) REPAIR OF MALLET FINGER (02/26/14)
[2023-10-03] MEDS: INSULIN LISPRO 300 UNIT/3 ML PEN SUBQ SCH (09:34)
[2023-10-03] MEDS: MIDODRINE 2.5 MG TABLET PO SCH (17:26)
--- NOTE | 2023-10-03 18:27 | PROVIDER PROGRESS NOTE ---
Assessment/Plan - Problem List (1) Supine hypertension Assessment/Plan: To treat significant orthostasis, yesterday he was started on Midodrine 2.5 mg tid w/ meals. After 2 doses of this, his BP christian to 200 systolic today, when supine Plan: I will restart the prn iv Hydralazine 10 mg every 8 hours with parameters of when to give it I will decrease the Midodrine to just once a day in a.m. (2) Orthostatic hypotension Today he has a 50 mmHg drop in syst BP from supine to standing position (VS were all reviewed) Plan: Because of overall severe hypertension, I will decrease the midodrine from 3 times daily with meals to just once a day in the a.m. (3) Vascular dementia The patient is bradykinetic, stares for a long time before responding. A CT of the head was done yesterday that showed small vessel ischemia plus atrophy, which is consistent with vascular dementia PT and OT evaluations were done and advised he now needs 24/7 caregiving and supervision I had a long meeting with the son Kulwant and the son Rodger at his bedside today and went over all these findings and learned of their plans to now have 24/7 caregiving at his home Plan: Will order home health PT, OT, bath aide, and RN (4) DM type 2 As per Hx. He was on Trulicity and Inkovana at home. Plan: He has not been on those 2 medicines since we do not have them on formulary and is running good glucoses between 140 and 200 No further dulaglutide or Inkovana for now should be used. I reviewed this plan with 2 sons at his bedside today (5) VILMA on CKD III His creat was 3.0 at admission. He got several days of iv fluids. Creatinine i mproved to 1.2 on 10/01/23. Plan: Encourage p.o.hydration (6) Hypoglycemia RESOLVED Initial serum glucose on presentation was 45. Patient takes Dulaglutdie and reportedly takes Invokana. He reportedly is not on any insulin. Both Dulaglutide and Invokana may cause hypoglycemia. Plan: I will recommend discontinuing both of these medications upon discharge and have patient follow-up with his primary care provider to sort out the best treatment for his diabetes mellitus type 2 Continue diabetic diet. Cont sliding scale insulin coverage Continue to monitor serum glucose (7) AMS IMPROVED Cause of confusion at presentation was most likely related to patient's episode of hypoglycemia and acute kidney injury. I reviewed entire chart and no brain imaging was done Plan: Head CT>> this showed atrophy and small vess disease, consistent with aging PT and OT evals Tentative plan is for patient to discharge to home with his son after evaluation by PT and OT (8) Leukocytosis RESOLVED Most likely related to stress and demargination. There is no clear source of infection at this time. - Current Meds Current Meds: Current Medications Generic Name Dose Route Start Last Admin Trade Name Freq PRN Reason Stop Dose Admin Aspirin 81 mg 09/29/23 09:00 10/03/23 09:36 Aspirin Ec 81 Mg Tablet PO 81 mg DAILY LYDIA Administration Atorvastatin Calcium 40 mg 09/29/23 21:00 10/02/23 21:15 Atorvastatin 40 Mg Tablet PO 40 mg QPM LYDIA Administration Heparin Sodium (Porcine) 5,000 unit 09/29/23 09:00 10/03/23 09:34 Heparin 5,000 Unit/Ml Vial SUBQ 5,000 unit BID LYDIA Administration Insulin Human Lispro 3 - 11 unit 10/03/23 08:00 10/03/23 17:40 Insulin Lispro 300 Unit/3 Ml Pen SUBQ 7 unit 0800,1200,1700,2100 LYDIA Administration Protocol Magnesium Oxide 400 mg 09/30/23 15:00 10/03/23 09:36 Magnesium Oxide 400 Mg Tablet PO 400 mg DAILYWM LYDIA Administration Sodium Chloride 10 ml 09/29/23 01:00 10/03/23 17:39 Sodium Chloride Flush 0.9% 10 Ml Syringe IVP 10 ml 0100,0900,1700 LYDIA Administration Zinc Oxide 113 gm 09/29/23 12:15 10/01/23 00:26 Cod Liver Oil/Zinc Oxide 113 Gm Tube TOP 1 applic PRN PRN Administration Skin Care - Lab Result Fish Bone Diagrams: 10/04/23 05:03 10/04/23 05:03 - Additional Planning My Orders: My Active Orders 10/03/23 08:00 Insulin Lispro [Humalog Kwikpen U-100] 3 - 11 unit SUBQ 0800,1200,1700,2100 10/04/23 05:00 BMP - BASIC METABOLIC PANEL [CHEM] DAILYLAB CBC - COMP BLD CT W/AUTO DIFF [HEME] DAILYLAB MAGNESIUM [CHEM] DAILYLAB PHOSPHORUS [CHEM] DAILYLAB 10/04/23 08:00 Midodrine [ProAmatine] 2.5 mg PO 0800 Subjective - Subjective Patient Reports: Other (Slow to answer that he has no complaints) Objective Vital Signs: Vital Signs - 24 hr 10/03/23 10/03/23 10/03/23 00:00 07:28 16:47 Temperature 36.9 C 36.5 C 37.0 C Heart Rate [ 64 66 63 Brachial] Respiratory 20 20 16 Rate Blood Pressure 168/70 H 197/89 H [Left Brachial artery] Blood Pressure 200/85 H 203/93 H [Right Brachial artery] O2 Saturation 96 98 97 Oxygen O2 Source Room air I&O (Last 24 Hrs): Intake and Output Totals x24h 10/01/23 10/02/23 10/03/23 23:59 23:59 23:59 Intake Total 890 1160 1010 Output Total 1025 1225 1200 Balance -135 -65 -190 General: Alert HEENT: EOMI Neck: Supple Neuro: Alert, Non Focal, Other (Poor memeory, slow to answer, speech is slow but accurate) Cardiovascular: Regular rate Respiratory: No respiratory distress, Breath sounds nml Abdomen: Normal bowel sounds, Soft, Other (Obese) Extremities: No edema, No tenderness/swelling - Results Results: Laboratory Results WBC 9.8 x10^3/uL (4.8-10.8) 10/01/23 05:25 RBC 4.07 10^6/uL (4.70-6.10) L 10/01/23 05:25 Hgb 13.0 g/dL (14.0-18.0) L 10/01/23 05:25 Hct 38.8 % (42.0-52.0) L 10/01/23 05:25 MCV 95.3 fL (80.0-94.0) H 10/01/23 05:25 MCH 31.9 pg (27.0-31.0) H 10/01/23 05:25 MCHC 33.5 g/dL (32.0-36.0) 10/01/23 05:25 RDW 12.6 % (12.0-15.0) 10/01/23 05:25 Plt Count 154 10^3/uL (130-450) 10/01/23 05:25 MPV 10.9 fL (7.4-11.4) 10/01/23 05:25 Neut # (Auto) 6.8 10^3/uL (1.5-6.6) H 10/01/23 05:25 Lymph # (Auto) 1.7 10^3/uL (1.5-3.5) 10/01/23 05:25 [place] # (Auto) 1.0 10^3/uL (0.0-1.0) 10/01/23 05:25 Eos # (Auto) 0.3 10^3/uL (0.0-0.7) 10/01/23 05:25 Baso # (Auto) 0.0 10^3/uL (0.0-0.1) 10/01/23 05:25 Absolute Nucleated RBC 0.00 x10^3/uL 10/01/23 05:25 Nucleated RBC % 0.0 /100WBC 10/01/23 05:25 Manual Slide Review Indicated 09/29/23 05:55 WBC Morphology NORMAL APPEARANCE (NORMAL) 09/29/23 05:55 Platelet Estimate NORMAL (130-450,000) (NORMAL) 09/29/23 05:55 Platelet Morphology NORMAL APPEARANCE (NORMAL) 09/29/23 05:55 RBC Morph Micro Appear NORMAL APPEARANCE (NORMAL) 09/29/23 05:55 Sodium 134 mmol/L (135-145) L 10/01/23 05:25 Potassium 4.0 mmol/L (3.5-4.5) 10/01/23 05:25 Chloride 103 mmol/L (101-111) 10/01/23 05:25 Carbon Dioxide 25 mmol/L (21-32) 10/01/23 05:25 Anion Gap 6.0 (6-13) 10/01/23 05:25 BUN 26 mg/dL (6-20) H 10/01/23 05:25 Creatinine 1.2 mg/dL (0.6-1.3) 10/01/23 05:25 Estimated GFR (MDRD) 58 (>89) L 10/01/23 05:25 Glucose 163 mg/dL (74-104) H 10/01/23 05:25 POC Whole Bld Glucose 227 mg/dL (70 - 100) H 10/03/23 17:02 Estimat Average Glucose 151 mg/dL (70-100) H 09/29/23 05:55 Hemoglobin A1c % 6.9 % (4.27-6.07) H 09/29/23 05:55 Calcium 8.6 mg/dL (8.5-10.3) 10/01/23 05:25 Phosphorus 2.3 mg/dL (2.5-5.0) L 10/01/23 05:25 Magnesium 1.5 mg/dL (1.7-2.3) L 10/01/23 05:25 Total Bilirubin 1.0 mg/dL (0.2-1.0) 09/28/23 13:47 AST 18 IU/L (10-42) 09/28/23 13:47 ALT 11 IU/L (10-60) 09/28/23 13:47 Alkaline Phosphatase 63 IU/L (42-121) 09/28/23 13:47 Troponin I High Sens 52.8 ng/L (2.3-19.7) H* 09/29/23 05:55 B-Natriuretic Peptide 208 pg/mL (5-100) H 09/28/23 13:47 Total Protein 7.0 g/dL (6.4-8.9) 09/28/23 13:47 Albumin 3.8 g/dL (3.2-5.5) 09/28/23 13:47 Globulin 3.2 g/dL (2.1-4.2) 09/28/23 13:47 Albumin/Globulin Ratio 1.2 (1.0-2.2) 09/28/23 13:47 Lipase < 10 U/L (11-82) L 09/28/23 13:47 Urine Color YELLOW 09/29/23 10:30 Urine Clarity CLEAR (CLEAR) 09/29/23 10:30 Urine pH 5.5 PH (5.0-7.5) 09/29/23 10:30 Ur Specific [place] 1.025 (1.002-1.030) 09/29/23 10:30 Urine Protein TRACE mg/dL (NEGATIVE) 09/29/23 10:30 Urine Glucose (UA) NEGATIVE mg/dL (NEGATIVE) 09/29/23 10:30 Urine Ketones NEGATIVE mg/dL (NEGATIVE) 09/29/23 10:30 Urine Occult Blood LARGE (NEGATIVE) H 09/29/23 10:30 Urine Nitrite NEGATIVE (NEGATIVE) 09/29/23 10:30 Urine Bilirubin NEGATIVE (NEGATIVE) 09/29/23 10:30 Urine Urobilinogen 0.2 (NORMAL) E.U./dL (NORMAL) 09/29/23 10:30 Ur Leukocyte Esterase NEGATIVE (NEGATIVE) 09/29/23 10:30 Urine RBC 11-25 /HPF (0-5) H 09/29/23 10:30 Urine WBC 0-3 /HPF (0-3) 09/29/23 10:30 Ur Squamous Epith Cells RARE Squamous (<= Few) 09/29/23 10:30 Urine Bacteria Rare /HPF (None Seen) 09/29/23 10:30 Ur Microscopic Review INDICATED 09/29/23 10:30 Urine Culture Comments NOT INDICATED 09/29/23 10:30 Nasal Adenovirus (PCR) NOT DETECTED 09/28/23 17:23 Nasal B. parapertussis DNA (PCR) NOT DETECTED 09/28/23 17:23 Nasal Coronavir 229E PCR NOT DETECTED 09/28/23 17:23 Nasal Coronavir HKU1 PCR NOT DETECTED 09/28/23 17:23 Nasal Coronavir NL63 PCR NOT DETECTED 09/28/23 17:23 Nasal Coronavir OC43 PCR NOT DETECTED 09/28/23 17:23 Nasal Enterovir/Rhinovir PCR NOT DETECTED 09/28/23 17:23 Nasal Influenza B PCR NOT DETECTED 09/28/23 17:23 Nasal Influenza A PCR NOT DETECTED 09/28/23 17:23 Nasal Parainfluen 1 PCR NOT DETECTED 09/28/23 17:23 Nasal Parainfluen 2 PCR NOT DETECTED 09/28/23 17:23 Nasal Parainfluen 3 PCR NOT DETECTED 09/28/23 17:23 Nasal Parainfluen 4 PCR NOT DETECTED 09/28/23 17:23 Nasal RSV (PCR) NOT DETECTED 09/28/23 17:23 Nasal B.pertussis DNA PCR NOT DETECTED 09/28/23 17:23 Nasal C.pneumoniae (PCR) NOT DETECTED 09/28/23 17:23 Gage Human Metapneumo PCR NOT DETECTED 09/28/23 17:23 Nasal M.pneumoniae (PCR) NOT DETECTED 09/28/23 17:23 Nasal SARS-CoV-2 (PCR) NOT DETECTED 09/28/23 17:23 - Procedures Procedures: Procedures DRAINAGE OF STOMACH WITH DRAINAGE DEVICE, VIA OPENING (09/25/15) EXCISION OF CECUM, ENDO (09/11/16) EXCISION OF RECTUM, ENDO (09/11/16) EXCISION OF SIGMOID COLON, ENDO (09/11/16) REPAIR OF MALLET FINGER (02/26/14)
[2023-10-04] MEDS: SODIUM CHLORIDE FLUSH 0.9% 10 ML SYRINGE IVP PRN (01:32)
[2023-10-04] MEDS: hydrALAZINE INJ 20 MG/ML VIAL IVP PRN (01:32)
[2023-10-04 05:38] LABS: BASOPHILS # (AUTO) 0.1 10^3/uL (0.0-0.1); BASOPHILS % (AUTO) 0.9 %; EOSINOPHILS # (AUTO) 0.4 10^3/uL (0.0-0.7); EOSINOPHILS % (AUTO) 4.4 %; HCT - HEMATOCRIT 40.5 % (42.0-52.0); HGB - HEMOGLOBIN 13.7 g/dL (14.0-18.0); LYMPHOCYTES # (AUTO) 1.9 10^3/uL (1.5-3.5); LYMPHOCYTES % (AUTO) 20.3 %; MEAN CORPUSCULAR HEMOGLOBIN 32.3 pg (27.0-31.0); MEAN CORPUSCULAR HGB CONC 33.8 g/dL (32.0-36.0); MEAN CORPUSCULAR VOLUME 95.5 fL (80.0-94.0); MEAN PLATELET VOLUME 11.1 fL (7.4-11.4); MONOCYTES # (AUTO) 0.9 10^3/uL (0.0-1.0); MONOCYTES % (AUTO) 9.3 %; NEUTROPHILS % (AUTO) 64.7 %; PLT - PLATELET COUNT 173 10^3/uL (130-450); RED BLOOD COUNT 4.24 10^6/uL (4.70-6.10); RED CELL DISTRIBUTION WIDTH 12.7 % (12.0-15.0); WHITE BLOOD COUNT 9.2 x10^3/uL (4.8-10.8)
[2023-10-04 05:50] LABS: CALCIUM 8.9 mg/dL (8.5-10.3); CREATININE 1.2 mg/dL (0.6-1.3); MAGNESIUM 1.7 mg/dL (1.7-2.3); PHOSPHORUS 2.9 mg/dL (2.5-5.0); POTASSIUM 3.9 mmol/L (3.5-4.5)
[2023-10-04] MEDS: MIDODRINE 2.5 MG TABLET PO SCH (09:27)
--- NOTE | 2023-10-04 18:45 | PROVIDER PROGRESS NOTE ---
Assessment/Plan - Problem List (1) Supine hypertension Assessment/Plan: To treat significant orthostasis, he was 1st started on Midodrine 2.5 mg tid w/ meals. After 2 doses of this, his BP christian to 200 systolic when supine. The dose was decreased from TID to just w/ breakfast and BP was still hypertensive today Plan: I will decrease the Midodrine to just 1/2 a tablet of 2.5 mg (so 1.25 mg) once a day in a.m. (2) Orthostatic hypotension He has an orthostatic drop in syst BP from supine to standing position, but standing syst BP is not dangerously hypotensive (VS were all reviewed) Plan: Because of overall severe hypertension and supine HTN, I will decrease the midodrine to just 1/2 a tablet of 2.5 mg (so 1.25 mg) once a day in a.m. He is not yet ready for DCh due to these needed chages in meds and needs BP monitoring (3) Vascular dementia The patient is bradykinetic, stares for a long time before responding. A CT of the head was done and showed small vessel ischemia plus atrophy, which is consistent with vascular dementia PT and OT evaluations were done and advised he now needs 24/7 caregiving and supervision I had a long meeting with the son Kulwant and the son Rodger at his bedside yesterday and went over all these findings and I learned of their excellent plans to now have 24/7 caregiving at home Plan: I ordered Home Health PT, OT, bath aide, and RN (4) DM type 2 As per Hx. He was on Trulicity and Inkovana at home. Plan: He has not been on those 2 medicines since we do not have them on formulary and is running good glucoses between 140 and 200 No further dulaglutide or Inkovana for now should be used. I reviewed this plan with 2 sons at his bedside yesterday (5) VILMA on CKD III His creat was 3.0 at admission. He got several days of iv fluids. Creatinine improved to 1.2 on 10/01/23. Plan: Encourage p.o.hydration (6) Hypoglycemia RESOLVED Initial serum glucose on presentation was 45. Patient takes Dulaglutdie and reportedly takes Invokana. He reportedly is not on any insulin. Both Dulaglutide and Invokana may cause hypoglycemia. Plan: I will recommend discontinuing both of these medications upon discharge and have patient follow-up with his primary care provider to sort out the best treatment for his diabetes mellitus type 2 Continue diabetic diet. Cont sliding scale insulin coverage Continue to monitor serum glucose (7) AMS IMPROVED Cause of confusion at presentation was most likely related to patient's episode of hypoglycemia and acute kidney injury. I reviewed entire chart and no brain imaging was done Plan: Head CT>> this showed atrophy and small vess disease, consistent with aging PT and OT evals Tentative plan is for patient to discharge to home with his son (8) Leukocytosis RESOLVED Most likely related to stress and demargination. There is no clear source of infection at this time. - Current Meds Current Meds: Current Medications Generic Name Dose Route Start Last Admin Trade Name Freq PRN Reason Stop Dose Admin Aspirin 81 mg 09/29/23 09:00 10/04/23 08:37 Aspirin Ec 81 Mg Tablet PO 81 mg DAILY LYDIA Administration Atorvastatin Calcium 40 mg 09/29/23 21:00 10/03/23 22:18 Atorvastatin 40 Mg Tablet PO 40 mg QPM LYDIA Administration Heparin Sodium (Porcine) 5,000 unit 09/29/23 09:00 10/04/23 08:36 Heparin 5,000 Unit/Ml Vial SUBQ 5,000 unit BID LYDIA Administration Hydralazine HCl 10 mg 10/03/23 18:43 10/04/23 01:32 Hydralazine Inj 20 Mg/Ml Vial IVP 10 mg Q8H PRN Administration Hypertensive Emergency Insulin Human Lispro 3 - 11 unit 10/03/23 08:00 10/04/23 17:51 Insulin Lispro 300 Unit/3 Ml Pen SUBQ 5 unit 0800,1200,1700,2100 LYDIA Administration Protocol Magnesium Oxide 400 mg 09/30/23 15:00 10/04/23 08:37 Magnesium Oxide 400 Mg Tablet PO 400 mg DAILYWM LYDIA Administration Midodrine 2.5 mg 10/04/23 08:00 10/04/23 09:27 Midodrine 2.5 Mg Tablet PO 2.5 mg 0800 LYDIA Administration Sodium Chloride 10 ml 09/28/23 23:43 10/04/23 01:32 Sodium Chloride Flush 0.9% 10 Ml Syringe IVP 10 ml PRN PRN Administration NEEDED PER PROVIDER ORDERS Sodium Chloride 10 ml 09/29/23 01:00 10/04/23 17:51 Sodium Chloride Flush 0.9% 10 Ml Syringe IVP 10 ml 0100,0900,1700 LYDIA Administration Zinc Oxide 113 gm 09/29/23 12:15 10/01/23 00:26 Cod Liver Oil/Zinc Oxide 113 Gm Tube TOP 1 applic PRN PRN Administration Skin Care - Lab Result Fish Bone Diagrams: 10/04/23 05:03 10/04/23 05:03 - Additional Planning My Orders: My Active Orders 10/03/23 18:43 hydrALAZINE INJ [Apresoline Inj] 10 mg IVP Q8H PRN 10/04/23 08:00 Midodrine [ProAmatine] 2.5 mg PO 0800 Subjective - Subjective Patient Reports: No Complaints Objective Vital Signs: Vital Signs - 24 hr 10/03/23 10/04/23 10/04/23 21:00 01:00 01:35 Temperature 36.9 C 37.1 C Heart Rate [ 73 67 67 Brachial] Respiratory 24 16 Rate Blood Pressure Blood Pressure [Left Brachial artery] Blood Pressure 188/85 H 170/82 H 187/88 H [Right Brachial artery] O2 Saturation 96 97 10/04/23 10/04/23 10/04/23 01:40 01:45 01:50 Temperature Heart Rate [ 67 70 71 Brachial] Respiratory Rate Blood Pressure Blood Pressure [Left Brachial artery] Blood Pressure 165/88 H 147/72 H 139/72 H [Right Brachial artery] O2 Saturation 10/04/23 10/04/23 10/04/23 01:53 02:15 02:30 Temperature Heart Rate [ 68 68 Brachial] Respiratory Rate Blood Pressure 139/72 H Blood Pressure [Left Brachial artery] Blood Pressure 150/63 H 171/72 H [Right Brachial artery] O2 Saturation 10/04/23 10/04/23 10/04/23 02:45 04:27 08:04 Temperature 36.8 C 36.6 C Heart Rate [ 73 73 89 Brachial] Respiratory 16 16 Rate Blood Pressure Blood Pressure 122/63 [Left Brachial artery] Blood Pressure 184/70 H 131/65 H [Right Brachial artery] O2 Saturation 95 100 10/04/23 10/04/23 13:00 15:55 Temperature 36.7 C 36.7 C Heart Rate [ 67 60 Brachial] Respiratory 16 16 Rate Blood Pressure Blood Pressure [Left Brachial artery] Blood Pressure 190/83 H 180/84 H [Right Brachial artery] O2 Saturation 93 97 Oxygen O2 Source Room air I&O (Last 24 Hrs): Intake and Output Totals x24h 10/02/23 10/03/23 10/04/23 23:59 23:59 23:59 Intake Total 1160 1330 1780 Output Total 1225 1200 300 Balance -65 130 1480 General: Alert, No acute distress HEENT: EOMI Neck: Supple, No JVD Neuro: Alert, Disoriented, Non Focal, Other (Poor memory, slow to answer, speech is minimal) Cardiovascular: Regular rate, No murmurs Respiratory: No respiratory distress, Breath sounds nml Abdomen: Normal bowel sounds, Soft Extremities: No clubbing, No edema, No tenderness/swelling - Results Results: Laboratory Results WBC 9.2 x10^3/uL (4.8-10.8) 10/04/23 05:03 RBC 4.24 10^6/uL (4.70-6.10) L 10/04/23 05:03 Hgb 13.7 g/dL (14.0-18.0) L 10/04/23 05:03 Hct 40.5 % (42.0-52.0) L 10/04/23 05:03 MCV 95.5 fL (80.0-94.0) H 10/04/23 05:03 MCH 32.3 pg (27.0-31.0) H 10/04/23 05:03 MCHC 33.8 g/dL (32.0-36.0) 10/04/23 05:03 RDW 12.7 % (12.0-15.0) 10/04/23 05:03 Plt Count 173 10^3/uL (130-450) 10/04/23 05:03 MPV 11.1 fL (7.4-11.4) 10/04/23 05:03 Neut # (Auto) 6.0 10^3/uL (1.5-6.6) 10/04/23 05:03 Lymph # (Auto) 1.9 10^3/uL (1.5-3.5) 10/04/23 05:03 [place] # (Auto) 0.9 10^3/uL (0.0-1.0) 10/04/23 05:03 Eos # (Auto) 0.4 10^3/uL (0.0-0.7) 10/04/23 05:03 Baso # (Auto) 0.1 10^3/uL (0.0-0.1) 10/04/23 05:03 Absolute Nucleated RBC 0.00 x10^3/uL 10/04/23 05:03 Nucleated RBC % 0.0 /100WBC 10/04/23 05:03 Manual Slide Review Indicated 09/29/23 05:55 WBC Morphology NORMAL APPEARANCE (NORMAL) 09/29/23 05:55 Platelet Estimate NORMAL (130-450,000) (NORMAL) 09/29/23 05:55 Platelet Morphology NORMAL APPEARANCE (NORMAL) 09/29/23 05:55 RBC Morph Micro Appear NORMAL APPEARANCE (NORMAL) 09/29/23 05:55 Sodium 132 mmol/L (135-145) L 10/04/23 05:03 Potassium 3.9 mmol/L (3.5-4.5) 10/04/23 05:03 Chloride 100 mmol/L (101-111) L 10/04/23 05:03 Carbon Dioxide 25 mmol/L (21-32) 10/04/23 05:03 Anion Gap 7.0 (6-13) 10/04/23 05:03 BUN 21 mg/dL (6-20) H 10/04/23 05:03 Creatinine 1.2 mg/dL (0.6-1.3) 10/04/23 05:03 Estimated GFR (MDRD) 58 (>89) L 10/04/23 05:03 Glucose 183 mg/dL (74-104) H 10/04/23 05:03 POC Whole Bld Glucose 221 mg/dL (70 - 100) H 10/04/23 16:34 Estimat Average Glucose 151 mg/dL (70-100) H 09/29/23 05:55 Hemoglobin A1c % 6.9 % (4.27-6.07) H 09/29/23 05:55 Calcium 8.9 mg/dL (8.5-10.3) 10/04/23 05:03 Phosphorus 2.9 mg/dL (2.5-5.0) 10/04/23 05:03 Magnesium 1.7 mg/dL (1.7-2.3) 10/04/23 05:03 Total Bilirubin 1.0 mg/dL (0.2-1.0) 09/28/23 13:47 AST 18 IU/L (10-42) 09/28/23 13:47 ALT 11 IU/L (10-60) 09/28/23 13:47 Alkaline Phosphatase 63 IU/L (42-121) 09/28/23 13:47 Troponin I High Sens 52.8 ng/L (2.3-19.7) H* 09/29/23 05:55 B-Natriuretic Peptide 208 pg/mL (5-100) H 09/28/23 13:47 Total Protein 7.0 g/dL (6.4-8.9) 09/28/23 13:47 Albumin 3.8 g/dL (3.2-5.5) 09/28/23 13:47 Globulin 3.2 g/dL (2.1-4.2) 09/28/23 13:47 Albumin/Globulin Ratio 1.2 (1.0-2.2) 09/28/23 13:47 Lipase < 10 U/L (11-82) L 09/28/23 13:47 Urine Color YELLOW 09/29/23 10:30 Urine Clarity CLEAR (CLEAR) 09/29/23 10:30 Urine pH 5.5 PH (5.0-7.5) 09/29/23 10:30 Ur Specific [place] 1.025 (1.002-1.030) 09/29/23 10:30 Urine Protein TRACE mg/dL (NEGATIVE) 09/29/23 10:30 Urine Glucose (UA) NEGATIVE mg/dL (NEGATIVE) 09/29/23 10:30 Urine Ketones NEGATIVE mg/dL (NEGATIVE) 09/29/23 10:30 Urine Occult Blood LARGE (NEGATIVE) H 09/29/23 10:30 Urine Nitrite NEGATIVE (NEGATIVE) 09/29/23 10:30 Urine Bilirubin NEGATIVE (NEGATIVE) 09/29/23 10:30 Urine Urobilinogen 0.2 (NORMAL) E.U./dL (NORMAL) 09/29/23 10:30 Ur Leukocyte Esterase NEGATIVE (NEGATIVE) 09/29/23 10:30 Urine RBC 11-25 /HPF (0-5) H 09/29/23 10:30 Urine WBC 0-3 /HPF (0-3) 09/29/23 10:30 Ur Squamous Epith Cells RARE Squamous (<= Few) 09/29/23 10:30 Urine Bacteria Rare /HPF (None Seen) 09/29/23 10:30 Ur Microscopic Review INDICATED 09/29/23 10:30 Urine Culture Comments NOT INDICATED 09/29/23 10:30 Nasal Adenovirus (PCR) NOT DETECTED 09/28/23 17:23 Nasal B. parapertussis DNA (PCR) NOT DETECTED 09/28/23 17:23 Nasal Coronavir 229E PCR NOT DETECTED 09/28/23 17:23 Nasal Coronavir HKU1 PCR NOT DETECTED 09/28/23 17:23 Nasal Coronavir NL63 PCR NOT DETECTED 09/28/23 17:23 Nasal Coronavir OC43 PCR NOT DETECTED 09/28/23 17:23 Nasal Enterovir/Rhinovir PCR NOT DETECTED 09/28/23 17:23 Nasal Influenza B PCR NOT DETECTED 09/28/23 17:23 Nasal Influenza A PCR NOT DETECTED 09/28/23 17:23 Nasal Parainfluen 1 PCR NOT DETECTED 09/28/23 17:23 Nasal Parainfluen 2 PCR NOT DETECTED 09/28/23 17:23 Nasal Parainfluen 3 PCR NOT DETECTED 09/28/23 17:23 Nasal Parainfluen 4 PCR NOT DETECTED 09/28/23 17:23 Nasal RSV (PCR) NOT DETECTED 09/28/23 17:23 Nasal B.pertussis DNA PCR NOT DETECTED 09/28/23 17:23 Nasal C.pneumoniae (PCR) NOT DETECTED 09/28/23 17:23 Gage Human Metapneumo PCR NOT DETECTED 09/28/23 17:23 Nasal M.pneumoniae (PCR) NOT DETECTED 09/28/23 17:23 Nasal SARS-CoV-2 (PCR) NOT DETECTED 09/28/23 17:23 - Procedures Procedures: Procedures DRAINAGE OF STOMACH WITH DRAINAGE DEVICE, VIA OPENING (09/25/15) EXCISION OF CECUM, ENDO (09/11/16) EXCISION OF RECTUM, ENDO (09/11/16) EXCISION OF SIGMOID COLON, ENDO (09/11/16) REPAIR OF MALLET FINGER (02/26/14)
--- NOTE | 2023-10-05 11:52 | Discharge Plan ---
Discharge Plan Problem Reviewed?: Yes Disposition: Home Health Service Condition: Stable Prescriptions: carvediloL [Coreg] 3.125 mg PO BID #60 tablet Magnesium Oxide [Mag Ox] 400 mg PO DAILY #30 tab Diet: Diabetic Activity Restrictions: Activity as Tolerated Shower Restrictions: No Driving Restrictions: Yes Assistance Devices: Wheelchair, Walker Weight Bearing: Full Weight Instruction Topics: ED Hypotension Orthostatic Health Concerns: The patient required hospitalization due to being weak, confused, dehydrated and with low glucose (in a diabetic). He was living alone. We corrected the glucose, the dehydration, and adjusted his medications when we found that the patient has Vascular Dementia, also has supine hypertension but orthostatic hypotension. Referral to a Home Health agency has been placed to provide PT, OT, bath aid and RN to come to the home. The family is arranging for him to have constant supervision from family or caregivers. Please follow the new medicine list. Several medications have been stopped. All new prescriptions were electronically sent to the [facility] pharmacy in [place]. Plan of Treatment: As above. Care Goals: Improvement in symptoms and stabilization are the goals. Assessment: The 2 sons understand and are agreeable with the plan. Additional Instructions or Follow Up instructions: If the patient has new or worsening symptoms, call the primary care provider for advice, or come to the ER. The patient should have an appointment in the next 1 to 2 weeks with his provider, Dr. Benito Ackerman, for a hospital follow-up visit since many medicines were changed. Please mention that [place] was an INPATIENT, when you make the appointment to see his doctor. Follow-Up Care: Home Health - RN, Home Health - PT, Home Health - OT No Smoking: If you smoke, Please STOP! Call for help. Follow-up with: BRIAN ACKERMAN MD [Primary Care Provider] -
--- NOTE | 2023-10-05 12:04 | DISCHARGE SUMMARY ---
Discharge Summary Admit Date: 09/28/23 Discharge Date: 10/05/23 Discharging Provider: Dr Yumiko Brothers Primary Care Provider: Dr Benito Ackerman Code Status: Attempt Resuscitation Condition at Discharge: Stable Discharge Disposition: [facility] - [facility] History of Present Illness: Mr Marsh is an 83 yo M with history of CAD/CABG, DM II, HLD who lives alone. Presents to ER after being found to be confused by his manager intelligence. Per report patient's 1-2 weeks ago and since that time he has been living alone. There have been concerns regarding his PO intake, medication management. Upon EMS arrival patient had blood glucose of 45. History is very limited - pt is having a hard time understanding the telemedicine/video encounter, does not answer questions for me. RN at bedside attempts to assist. Patient has denied any pain or discomfort, denies chest pain. He is moderately confused and disoriented. Labs showed creat 3.0, usual is 1.0. He will be admitted to evaluate and treat Acute metabolic encephalopathy, VILMA, and Hypoglycemia. SW consult needed to ensure home safety assessment since he now lives alone. - HOSPITAL COURSE Hospital Course: (1) AMS Cause of confusion at presentation was most likely related to patient's episode of hypoglycemia and acute kidney injury. Since no brain imaging was done in ER, he had a head CT that showed brain atrophy and small vessel disease, consistent with aging and with ischemia. He became less confused with iv fluids, improved serum glu levels with his Trulicity and Inkovana stopped. (2) Hypoglycemia Initial serum glucose on presentation was 45. Patient was on Dulaglutdie and Invokana at home. He reportedly is not on any insulin. Both Dulaglutide and Invokana may cause hypoglycemia. I recommend discontinuing both of these medications and patient should follow-up with his primary care provider to sort out the best treatment for his diabetes mellitus type 2. (3) VILMA on CKD III His creat was 3.0 at admission, baseline creat was 1.0. He got several days of iv fluids. Creatinine improved to 1.2 on 10/01/23. (4) Supine hypertension To treat significant orthostasis, he was started on Midodrine 2.5 mg tid w/ meals. After 2 doses of this, his BP christian to 200 systolic when supine. The Midodrine dose was decreased twice, before he was felt safe to discharge. (5) Orthostatic hypotension He had a 50 mmHg drop in syst BP from supine to standing position. Midodrine was started, dose was decreased twice, before he was felt safe to discharge. (6) Vascular dementia The patient was bradykinetic, he stares for a long time before responding. A CT of the head was done that showed small vessel ischemia plus atrophy, which is consistent with vascular dementia. PT and OT evaluations were done and advised he now needs 24/7 caregiving and supervision. I had a long meeting with the son Kulwant and the son Rodger at his bedside, and went over test results and learned of their plans to now have 24/7 caregiving at his home. I placed a referral for a Home Health agency to provider PT, OT, bath aide, and RN (7) DM type 2 He was on Trulicity and Inkovona before this admission. His A1c came back at 6.9, which indicates excessive glu control for an 83 y/o. Those 2 meds were stopped. He was on a Diabetic diet and sliding scale Insulin coverage while here. - ALLERGIES Allergies/Adverse Reactions: Allergies Allergy/AdvReac Type Severity Reaction Status Date / Time metformin Allergy Mild Rash Verified 09/28/23 13:02 glyburide Allergy Rash Verified 09/28/23 13:02 nylon Allergy Rash Verified 09/28/23 13:02 - MEDICATIONS Home Medications: Ambulatory Orders Medication Instructions Recorded Confirmed Atorvastatin [Lipitor] 20 mg PO QPM 02/25/14 10/01/23 Dulaglutide [Trulicity] 1.5 mg SUBQ UD 10/01/23 10/01/23 Acetaminophen [Tylenol] 650 mg PO Q4HR PRN tab 10/05/23 Aspirin EC [Ecotrin] 81 mg PO DAILY tab 10/05/23 Magnesium Oxide [Mag Ox] 400 mg PO DAILY #30 tab 10/05/23 carvediloL [Coreg] 3.125 mg PO BID #60 tablet 10/05/23 - PHYSICAL EXAM AT DISCHARGE General Appearance: positive: No acute distress, Alert Eyes Bilateral: positive: Normal inspection, EOMI ENT: positive: ENT inspection nml, No signs of dehydration Neck: positive: Nml inspection Respiratory: positive: No respiratory distress, Breath sounds nml Cardiovascular: positive: Regular rate & rhythm, No murmur Abdomen: positive: Non-tender, Nml bowel sounds, Other (Obese) Skin: positive: Warm, Dry Extremities: positive: Non-tender, No pedal edema Neurologic/Psychiatric: positive: CN's nml (2-12), Motor nml, Disoriented to time, Other (Slow to move, slow to answer, speech is minimal, poor memory.) - LABS Result Diagrams: 10/04/23 05:03 10/04/23 05:03 - DIAGNOSTIC IMAGING Diagnostic Imaging Results: Final report reviewed - FOLLOW UP Follow Up: See PCP for a hospital F/U visit. - TIME SPENT Time Spent in Discharge (Minutes): 45
[2023-10-05 13:57] VITALS: BP 151/67; O2SAT 97
== END 2023-10-05 14:10 | disposition home health service (06) | DRG 637 ==
LOC: EDUNIT# → ED 12:55 → MS2 23:43
PROVIDERS: ADMIT Student in an Organized Health Care Education/Training Program; ATTEND Internal Medicine
DX: E11.649 Type 2 diabetes mellitus with hypoglycemia without coma (principal); G93.41 Metabolic encephalopathy; N17.9 Acute kidney failure, unspecified; R79.89 Other specified abnormal findings of blood chemistry; J18.9 Pneumonia, unspecified organism; N18.30 Chronic kidney disease, stage 3 unspecified; E11.22 Type 2 diabetes mellitus with diabetic chronic kidney disease; I12.9 Hypertensive chronic kidney disease with stage 1 through stage 4 chronic kidney disease, or unspecified chronic kidney disease; I95.1 Orthostatic hypotension; Z20.822 Contact with and (suspected) exposure to COVID-19; F01.50 Vascular dementia, unspecified severity, without behavioral disturbance, psychotic disturbance, mood disturbance, and anxiety; E78.00 Pure hypercholesterolemia, unspecified; I25.10 Atherosclerotic heart disease of native coronary artery without angina pectoris; K59.09 Other constipation; D72.829 Elevated white blood cell count, unspecified; Z79.4 Long term (current) use of insulin; Z79.82 Long term (current) use of aspirin; Z79.85 Long-term (current) use of injectable non-insulin antidiabetic drugs; Z79.899 Other long term (current) drug therapy; Z95.1 Presence of aortocoronary bypass graft
CPT/HCPCS: 36415; 70450; 71045; 80048; 80053; 81001; 83036; 83690; 83735; 83880; 84100; 84484; 85025; 87633; 93005; 96361; 96374; 97162; 97166; 97530; 97535; 99285; A9270; 81003; 87086

== ENCOUNTER 2023-12-22 14:08 | Emergency (ER) | payer MEDICARE ==
--- NOTE | 2023-12-22 14:36 | ED Physician Documentation ---
History of Present Illness - Stated complaint Stated Complaint: DIABETIC,HIGH BLOOD SUGAR - Chief complaint Chief Complaint: General - History obtained from History obtained from: Patient - Additonal information Additional information: 83-year-old gentleman with diabetes ran out of glargine a couple of weeks ago because of a pharmacy shortage and is here without specific complaint but with high blood sugars up into the 400s. His usual dose is 100 units/day. PD PAST MEDICAL HISTORY - Past Medical History Past Medical History: Yes Cardiovascular: High cholesterol, Coronary artery disease Respiratory: Sleep apnea, CPAP use Neuro: None Endocrine/Autoimmune: Type 2 diabetes GI: Colon polyps, Chronic constipation : Kidney stones HEENT: None Psych: None Musculoskeletal: None Derm: Other - Past Surgical History Past Surgical History: Yes Cardiovascular: CABG, Other Derm: Skin cancer surgery - Present Medications Home Medications: Ambulatory Orders Medication Instructions Recorded Confirmed Atorvastatin [Lipitor] 20 mg PO QPM 02/25/14 10/01/23 Dulaglutide [Trulicity] 1.5 mg SUBQ UD 10/01/23 10/01/23 Acetaminophen [Tylenol] 650 mg PO Q4HR PRN tab 10/05/23 Aspirin EC [Ecotrin] 81 mg PO DAILY tab 10/05/23 Magnesium Oxide [Mag Ox] 400 mg PO DAILY #30 tab 10/05/23 carvediloL [Coreg] 3.125 mg PO BID #60 tablet 10/05/23 Insulin Detemir [Levemir Flexpen] 100 unit SQ DAILY #2 ea 12/22/23 - Allergies Allergies/Adverse Reactions: Allergies Allergy/AdvReac Type Severity Reaction Status Date / Time metformin Allergy Mild Rash Verified 12/22/23 14:26 glyburide Allergy Rash Verified 12/22/23 14:26 nylon Allergy Rash Verified 12/22/23 14:26 - Social History Does the pt smoke?: No Smoking Status: Never smoker Does the pt drink ETOH?: No Does the pt have substance abuse?: No - Immunizations Immunizations are current?: Yes - POLST Patient has POLST: No PD ED PE NORMAL - Vitals Vital signs reviewed: Yes - General General: Alert and oriented X 3, No acute distress - Cardiac Cardiac: RRR, No murmur - Respiratory Respiratory: No respiratory distress, Clear bilaterally - Abdomen Abdomen: Non tender - Neuro Neuro: Alert and oriented X 3 - Psych Psych: Normal mood, Normal affect Results - Vitals Vitals: Vital Signs - 24 hr 12/22/23 12/22/23 12/22/23 14:15 14:26 15:35 Temperature 36.5 C 36.4 C L 36.4 C L Heart Rate 64 60 60 Respiratory 16 18 18 Rate Blood Pressure 202/80 H 186/72 H 186/72 H O2 Saturation 100 99 99 Oxygen O2 Source Room air - Labs Labs: Laboratory Tests 12/22/23 12/22/23 12/22/23 14:25 14:39 14:39 WBC 8.7 RBC 4.49 L Hgb 13.9 L Hct 43.7 MCV 97.3 H MCH 31.0 MCHC 31.8 L RDW 14.6 Plt Count 169 MPV 10.6 Neut # (Auto) 5.2 Lymph # (Auto) 2.3 [place] # (Auto) 0.7 Eos # (Auto) 0.3 Baso # (Auto) 0.1 Absolute Nucleated RBC 0.00 Nucleated RBC % 0.0 VBG pH VBG pCO2 VBG pO2 VBG HCO3 VBG Total CO2 VBG O2 Saturation VBG Base Excess Sodium 136 Potassium 4.4 Chloride 99 L Carbon Dioxide 30 Anion Gap 7.0 BUN 19 Creatinine 1.3 Estimated GFR (MDRD) 53 L Glucose 351 H POC Whole Bld Glucose 372 H Calcium 9.1 Magnesium 1.7 Total Bilirubin 0.5 AST 12 ALT 16 Alkaline Phosphatase 55 Total Protein 6.3 L Albumin 3.8 Globulin 2.5 Albumin/Globulin Ratio 1.5 Serum Ketones NEGATIVE 12/22/23 14:39 WBC RBC Hgb Hct MCV MCH MCHC RDW Plt Count MPV Neut # (Auto) Lymph # (Auto) [place] # (Auto) Eos # (Auto) Baso # (Auto) Absolute Nucleated RBC Nucleated RBC % VBG pH 7.333 VBG pCO2 49.6 VBG pO2 23.3 L VBG HCO3 25.7 VBG Total CO2 27.3 VBG O2 Saturation 39.5 L VBG Base Excess -0.8 Sodium Potassium Chloride Carbon Dioxide Anion Gap BUN Creatinine Estimated GFR (MDRD) Glucose POC Whole Bld Glucose Calcium Magnesium Total Bilirubin AST ALT Alkaline Phosphatase Total Protein Albumin Globulin Albumin/Globulin Ratio Serum Ketones PD Medical Decision Making - ED course ED course: He has high blood sugars due to being out of his insulin. I called the pharmacist and asked what an appropriate replacement would be and he recommended Levemir, which has similar pharmacokinetics and action to glargine. I did call [facility] in [place] and confirmed they have it in stock. We are checking labs to make sure he does not have DKA. There is no evidence of DKA on labs, CBC, CMP, ketones and venous gas were notable only for hyperglycemia. Departure - Departure Disposition: Home, Self Care Clinical Impression: Type 2 diabetes mellitus treated with insulin, Hyperglycemia Condition: Good Record reviewed to determine appropriate education?: Yes Instructions: ED Hyperglycemia Diabetic Prescriptions: Insulin Detemir [Levemir Flexpen] 100 unit SQ DAILY #2 ea Comments: The insulin I am prescribing is pretty much equivalent to glargine and you can substitute it for the glargine at the same dose until you can refill the glargine. The Trulicity can wait until the pharmacy has it in stock. Go directly to [facility] in [place] to pickle processor the prescription. Start it today. Forms: PCP List Discharge Date/Time: 12/22/23 15:36
[2023-12-22 14:44] LABS: BASOPHILS # (AUTO) 0.1 10^3/uL (0.0-0.1); BASOPHILS % (AUTO) 1.2 %; EOSINOPHILS # (AUTO) 0.3 10^3/uL (0.0-0.7); EOSINOPHILS % (AUTO) 3.8 %; HCT - HEMATOCRIT 43.7 % (42.0-52.0); HGB - HEMOGLOBIN 13.9 g/dL (14.0-18.0); LYMPHOCYTES # (AUTO) 2.3 10^3/uL (1.5-3.5); LYMPHOCYTES % (AUTO) 26.3 %; MEAN CORPUSCULAR HGB CONC 31.8 g/dL (32.0-36.0); MEAN CORPUSCULAR VOLUME 97.3 fL (80.0-94.0); MEAN PLATELET VOLUME 10.6 fL (7.4-11.4); MONOCYTES # (AUTO) 0.7 10^3/uL (0.0-1.0); MONOCYTES % (AUTO) 8.5 %; NEUTROPHILS # (AUTO) 5.2 10^3/uL (1.5-6.6); PLT - PLATELET COUNT 169 10^3/uL (130-450); RED BLOOD COUNT 4.49 10^6/uL (4.70-6.10); RED CELL DISTRIBUTION WIDTH 14.6 % (12.0-15.0); WHITE BLOOD COUNT 8.7 x10^3/uL (4.8-10.8)
[2023-12-22 14:50] LABS: VBG BASE EXCESS -0.8 mmol/L (-2 - +2); VBG HCO3 25.7 mmol/L (23-28); VBG OXYGEN SATURATION 39.5 % (60-80); VBG PCO2 49.6 mmHg (41-51); VBG PH 7.333 (7.31-7.41); VBG PO2 23.3 mmHg (25-47); VBG TOTAL CO2 27.3 mmol/L (24-29)
[2023-12-22 14:51] LABS: KETONES, SERUM (ACETEST) NEGATIVE (NEGATIVE)
[2023-12-22 15:09] LABS: ALBUMIN 3.8 g/dL (3.2-5.5); ALBUMIN/GLOBULIN RATIO 1.5 (1.0-2.2); ALKALINE PHOSPHATASE 55 IU/L (42-121); ALT ALANINE AMINOTRANSFERASE 16 IU/L (10-60); AST ASPARTATE AMINOTRANSFERASE 12 IU/L (10-42); BILIRUBIN,TOTAL 0.5 mg/dL (0.2-1.0); BUN - BLOOD UREA NITROGEN 19 mg/dL (6-20); CALCIUM 9.1 mg/dL (8.5-10.3); CARBON DIOXIDE - CO2 30 mmol/L (21-32); CHLORIDE 99 mmol/L (101-111); CREATININE 1.3 mg/dL (0.6-1.3); GFR - MDRD 53 (>89); GLUCOSE 351 mg/dL (74-104); MAGNESIUM 1.7 mg/dL (1.7-2.3); POTASSIUM 4.4 mmol/L (3.5-4.5); SODIUM 136 mmol/L (135-145); TOTAL PROTEIN 6.3 g/dL (6.4-8.9)
[2023-12-22 15:17] VITALS: BP 186/72; O2SAT 99
== END 2023-12-22 15:36 | disposition home or self-care (01) ==
LOC: ED 14:08
DX: E11.65 Type 2 diabetes mellitus with hyperglycemia (principal); T38.3X6A Underdosing of insulin and oral hypoglycemic [antidiabetic] drugs, initial encounter; Z91.138 Patient's unintentional underdosing of medication regimen for other reason; Z79.85 Long-term (current) use of injectable non-insulin antidiabetic drugs; Z79.4 Long term (current) use of insulin
CPT/HCPCS: 36415; 80053; 82009; 82803; 83735; 85025; 99283; 99284